=== PATIENT | male | born 1955 | race Caucasian/White ===

== ENCOUNTER 2020-03-18 14:43 | Outpatient (REF) | payer BC, SELFPAY ==
[2020-03-18 19:36] LABS: COMMENT (LAB VIEW ONLY) 257.75 mg/dL; Microalb ug/mg Crea 9.2 ug/mg Cr
== END 2020-03-18 14:44 | disposition home or self-care (01) ==
LOC: NCHCN 14:43
PROVIDERS: PCP Internal Medicine; Visit Provider Internal Medicine
DX: E11.9 Type 2 diabetes mellitus without complications (principal)
CPT/HCPCS: 82043; 82570

== ENCOUNTER 2022-10-06 10:07 | Outpatient (CLI) | payer BC, SELFPAY ==
--- NOTE | 2022-10-06 10:21 | DI.RAD_ITS ---
Exam(s) XR HIP RT COMPLETE AP PELVIS EXAM: XR HIP RT COMPLETE AP PELVIS CLINICAL HISTORY: eval R hip pain. TECHNIQUE: 2D digital imaging was performed of the right hip. Two images were obtained. AP pelvis a nd lateral right hip views were obtained. COMPARISON: No exams were available for comparison FINDINGS: BONES: No acute fracture is present. No bony destructive lesion is seen. JOINTS: No dislocation present. There is joint space narrowing of the hips bilaterally, right greater than left. There is subchondral sclerosis in the acetabular roof on the right. SOFT TISSUE: Surgical clips are seen inferior to the pelvis which may reflect prior vasectomy. IMPRESSION: Degenerative changes of the right hip. DATA REPOSITORY: RADIATION DOSE DELIVERED:
== END 2022-10-06 10:08 | disposition home or self-care (01) ==
LOC: DIORS 10:08
PROVIDERS: PCP Internal Medicine; Referring Provider Internal Medicine; Visit Provider Student in an Organized Health Care Education/Training Program
DX: M16.11 Unilateral primary osteoarthritis, right hip (principal)
CPT/HCPCS: 73502

== ENCOUNTER 2022-11-10 02:22 | Outpatient (CLI) | payer OTHER, SELFPAY ==
[2022-11-10 11:35] LABS: HCT 44.2 % (40.0-50.0); HGB 14.9 g/dL (13.5-17.5); MCH 29.6 pg (27.0-33.0); MCHC 33.7 % (32.0-36.0); MCV 88 fL (80-95); MPV 10.5 fL (8.0-11.0); Platelet Count 195 10^3/uL (130-400); RBC 5.04 10^6/uL (4.36-5.78); RDW 12.2 % (11.8-14.1); RDW-SD 39.2 fL; WBC 9.93 10^3/uL (4.4-10.8)
[2022-11-10 11:56] LABS: Anion Gap 9.3 mmol/L (3-11); BUN 22 mg/dL (7-18); CO2 25.7 mmol/L (21.0-32.0); Chloride 101 mmol/L (98-107); Estimated GFR 81.98 (mL/min/1.73m2); Glucose 144 mg/dL (74-106); Sodium 136 mmol/L (136-145)
== END 2022-11-10 02:23 | disposition home or self-care (01) ==
LOC: LBO 02:22
PROVIDERS: PCP Internal Medicine; Visit Provider Student in an Organized Health Care Education/Training Program
DX: M25.551 Pain in right hip (principal); M16.11 Unilateral primary osteoarthritis, right hip; Z01.818 Encounter for other preprocedural examination; Z01.812 Encounter for preprocedural laboratory examination
CPT/HCPCS: 36415; 80048; 85027

== ENCOUNTER 2022-11-22 05:55 | Day surgery (SDC) | payer OTHER, SELFPAY ==
[2022-11-22] VITALS (7 sets, daily range): BP systolic 119–138; BP diastolic 68–82; PULSE 54–77; RESP 12–121; TEMP 36.1–37; O2SAT 97–98; BMI 24.4
[2022-11-22] MEDS: Acetaminophen 500 MG TAB 1000 MG PO (06:42)
[2022-11-22] MEDS: Celecoxib 200 MG CAP 400 MG PO (06:42)
--- NOTE | 2022-11-22 06:55 | W.ANESPRE ---
General Info Date of Service Date Performed: 11/22/22 Height: 6 ft 2.5 in Weight: 87.4 kg Body Mass Index (BMI): 24.4 Surgical Procedure: Operation Date: 11/22/22 07:50 Proposed Procedure Side Surgeon p Hip Total Hip Anterior, ACTIS Right Rasheed Erazo MD Meds Allergies and Home Medications Allergies Allergy/AdvReac Type Severity Reaction Status Date / Time No Known Allergies Allergy Verified 11/22/22 06:30 Home Medication Medication Instructions Recorded cholecalciferol (vitamin D3) 25 25 mcg PO DAILY 09/08/19 mcg (1,000 unit) capsule multivitamin,[id number] 1 tab PO DAILY 09/08/19 (Complete Multivitamin tablet) omega-3 fatty acids 1,000 mg 1,500 mg PO DAILY 09/08/19 capsule atorvastatin 20 mg tablet 20 mg PO DAILY 10/06/22 dapagliflozin propanediol 5 mg 5 mg PO DAILY 10/06/22 tablet (Farxiga) fluoxetine 20 mg capsule 20 mg PO DAILY 10/06/22 trazodone 50 mg tablet 50 mg PO QHS 10/06/22 metformin 750 mg tablet,extended 750 mg PO BID 11/01/22 release 24 hr acetaminophen 500 mg tablet 1,000 mg (2 x 500 mg) PO TID #90 11/22/22 tabs aspirin 81 mg tablet,delayed 81 mg PO BID #60 tabs 11/22/22 release celecoxib 200 mg capsule 200 mg PO BID #60 caps 11/22/22 magnesium 100 mg tablet 400 mg PO 11/22/22 oxycodone 5 mg tablet 5 mg PO Q4H PRN pain #20 tabs 11/22/22 pantoprazole 40 mg tablet,delayed 40 mg PO DAILY #30 tabs 11/22/22 release Current Visit Medications: Current Medications Generic Name Dose Route Start Last Admin Trade Name Freq PRN Reason Stop Dose Admin Acetaminophen 1,000 mg 11/22/22 06:00 11/22/22 06:42 Acetaminophen 500 Mg Tab PO 12/22/22 05:59 1,000 mg PREOP ELIUD Administration Celecoxib 400 mg 11/22/22 06:00 11/22/22 06:42 Celecoxib 200 Mg Cap PO 12/22/22 05:59 400 mg PREOP ELIUD Administration Tranexamic Acid 1,000 mg/ 60 mls @ 360 mls/hr 11/22/22 06:00 Sodium Chloride IV 12/22/22 05:59 PREOP ELIUD Ringer's Solution 1,000 mls @ 80 mls/hr 11/22/22 06:00 IV 12/21/22 23:59 INFUSION ELIUD Cefazolin Sodium/Dextrose 2 gm in 50 mls @ 100 mls/hr 11/22/22 06:00 Ancef Duplex IVPB 12/21/22 23:59 PREOP ELIUD IV Miscellaneous Supplies 1 each 11/22/22 06:00 Iv Access IV 12/21/22 23:59 DIRECTED ELIUD Sodium Chloride 0 ml 11/22/22 06:00 Normal Saline Flush 10 Ml Syr IV 12/21/22 23:59 PRN PRN Sodium Chloride 0 ml 11/22/22 06:00 Normal Saline 10 Ml Vial IJ 12/21/22 23:59 DIRECTED PRN Sterile Water 0 ml 11/22/22 06:00 Water,Injection,Sterile 10 Ml Vial IJ 12/21/22 23:59 DIRECTED PRN PFSH Active Problems Active Problems: Problem Status Onset Code Type 2 diabetes mellitus E11.9 Arthritis of right hip M16.11 Nocturia R35.1 Diabetic peripheral neuropathy E11.42 Trigeminal neuralgia G50.0 Medical History Medical History Multiple sclerosis Leg length discrepancy Depression with anxiety Broken neck 1974 Insomnia Hyperlipidemia Hypertension SUAREZ (nonalcoholic steatohepatitis) Enthesopathy Panic disorder Medical History Comments:: Per pt. states they gave me gas and I didn't come out of it well Surgical History Surgical History Status post myringotomy with tube placement of both ears S/P tonsillectomy S/P foot surgery, left Tobacco Smoking/Tobacco Use Status: Former Tobacco Use Alcohol Alcohol Intake: current Alcohol intake frequency: 0-2 drinks per day Alcohol type: hard liquor Substance Use Substance use: Never Substance use type: does not use Details: alcohol: t-2, 2 drinks Vital Signs and Lab Results Vital Signs Most Recent Vital Signs in EMR: Most Recent Vital Signs Temp Pulse Resp BP Pulse Ox 37.0 C 77 18 119/78 98 11/22/22 06:45 11/22/22 06:45 11/22/22 06:45 11/22/22 06:45 11/22/22 06:45 Lab Results Blood Type / Crossmatch: No Data to Display Complete Blood Count: White Blood Count 9.93 10^3/uL (4.4-10.8) 11/10/22 11:18 Red Blood Count 5.04 10^6/uL (4.36-5.78) 11/10/22 11:18 Hemoglobin 14.9 g/dL (13.5-17.5) 11/10/22 11:18 Hematocrit 44.2 % (40.0-50.0) 11/10/22 11:18 Platelet Count 195 10^3/uL (130-400) 11/10/22 11:18 Complete Metabolic Panel: Sodium 136 mmol/L (136-145) 11/10/22 11:18 Potassium 4.0 mmol/L (3.5-5.1) 11/10/22 11:18 Chloride 101 mmol/L (98-107) 11/10/22 11:18 Carbon Dioxide 25.7 mmol/L (21.0-32.0) 11/10/22 11:18 BUN 22 mg/dL (7-18) H 11/10/22 11:18 Creatinine 1.0 mg/dL (0.70-1.30) 11/10/22 11:18 Est GFR (CKD-EPI 2020) 81.98 (mL/min/1.73m2) 11/10/22 11:18 Calcium 10.0 mg/dL (8.5-10.1) 11/10/22 11:18 Glucose 144 mg/dL (74-106) H 11/10/22 11:18 Liver Function Panel: No Data to Display Coagulation Panel: No Data to Display Cardiac Panel: No Data to Display Arterial Blood Gas: No Data to Display Venous Blood Gas: No Data to Display Pancreas Panel: No Data to Display Thyroid Panel: No Data to Display Infectious Disease: No Data to Display Blood Cultures: No Data to Display Toxicology Panel: No Data to Display Anesthesia Assessment and Plan Anesthesia History Personal History: Other Family History: No Family History of Anesthesia Complications Exercise Tolerance Exercise Tolerance: Metabolic Equivalents>4 Pertinent Negatives Pertinent Negatives: No Symptoms of GERD, No Major Cardiovascular Symptoms or Complaints and No Major Pulmonary Symptoms or Complaints Cardiac & Pulmonary Exam Cardiac Exam: Normal S1/S2 Heart Sounds Pulmonary Exam: Clear Bilateral Breath Sounds Implantable Cardiac Device Does patient have a Pacemaker or an ICD?: No Airway Exam Known Difficult Airway: No Mallampati Class: 4 Mouth Opening: Narrow (< 3cm) Thyromental Distance: Greater than 3 cm Facial Hair: Full Acosta (mustache) Neck Range of Motion: Limited ROM Neck Circumference: Normal Teeth Condition: Normal Dentition ASA Classification ASA Score: ASA 3 Emergency Case?: No NPO Status NPO Status: NPO Clears >2 hours, Solids >8 hours Anesthesia Plan Resuscitation Status: Full Code Anesthesia Technique: Spinal Anesthesia Airway Planned: Natural Airway Monitors Used: Standard Monitors Preoperative Comments:: SAB with GA/ETT backup. Patient's reports snoring while on back.
[2022-11-22] MEDS: Lactated Ringers 1,000 ML 80 ML IV (07:00)
--- NOTE | 2022-11-22 07:00 | DI.RAD_ITS ---
Exam(s) XR HIP RT IN OR EXAM: XR HIP RT IN OR CLINICAL HISTORY: ARTHRITIS RIGHT HIP TECHNIQUE: 2D and realtime digital imaging was performed. CONTRAST MATERIAL: Refer to procedure report. COMPARISON: CR XR HIP RT COMPLETE AP PELVIS from 10/06/2022 FINDINGS: Fluoroscopy was provided for Dr. Erazo during the performance of a right total hip replacement. Please refer to the procedure report for complete details. Ka,r=2.6 mGy IMPRESSION: RADIATION DOSE DELIVERED:
[2022-11-22] MEDS: ceFAZolin 2 GM/50 ML BAG IVPB (07:46)
--- NOTE | 2022-11-22 09:18 | ROE_ITS ---
Date of service: 11/22/22 Time of Service: 09:18 Operative Note Operative Note DATE OF PROCEDURE: 11/22/22 PRE-OP DIAGNOSIS: Right Hip Osteoarthritis POST-OP DIAGNOSIS: same PROCEDURE: Right Anterior Total Hip Arthroplasty with Intraoperative Navigation SURGEON: Rasheed Erazo CLINICAL TEAM LEAD: Lane Tovar ANESTHESIA TYPE: Spinal Refer to Anesthesia Record ESTIMATED BLOOD LOSS: 200 PATHOLOGY: none sent TOURNIQUET TIME: 0 COMPLICATIONS: None Patient was transported to: PACU Patient's condition: stable Implants: 1. Depuy [employer] Acetabular Component, 58mm 2. Depuy Acetabular Liner, [id number] 3. Depuy Actis High Offset Collared Femoral Stem, Size 8 4. Depuy Altrx Ceramic Femoral Head, Size 36+1.5mm Indications: I have seen Pete in clinic for symptoms of hip arthritis, confirmed with radiographic findings. He has exhausted nonoperative methods and was having significant limitations in daily function and desired better function and less pain. I discussed the technical details of a hip replacement. I explained the risks of the procedure to include, but not limited to, bleeding, infection, pain, stiffness, fracture, damage to nerves and vessels, damage to muscles and tendons, loosening, instability, leg length inequality, need for repeat procedure, blood clot and cardiopulmonary demise. Despite these risks, Pete elected to proceed. Findings: There was significant signs of arthritis throughout the hip along with alarge, complex superior labral tear. Procedure Description: Pete was greeted in the preoperative holding area where the correct side was identified and marked. The consent was reviewed with the patient and signed. The history and physical was updated. All questions were answered. He was taken back to the operating room. A spinal anesthestic was then administered. The feet were wrapped with cast padding and Coban and then placed into the boot liners and then into the boots. Care was taken to protect the skin and make sure the heels were fully down and the boots were stable. The patient was then positioned onto the HANA table. Both legs were held in a neutral position. SCDs were applied. The patient was then slid down onto a peroneal post. Prophylactic antibiotics in the form of Cefazolin were administered. 1g of Tranxemic Acid was given intravenously within 30 minutes of incision. The right leg was then prepped with Chloraprep and draped in a standard fashion. A second prep with Chloraprep was performed prior to placement of a shower-curtain type drape with Iodine impregnated skin protection. A timeout to confirm correct identity, side and site, procedure, allergies, anesthesia, and medical concerns was performed. An obliquely oriented incision was made starting lateral to the ASIS and running distal over the Tensor Fascia Liliana (TFL) muscle belly toward the fibular head, approximately 10cm. The skin and soft tissue was dissected sharply, through Hever?s fascia, and to the fascia of the TFL. With the fascia and superior border of the IT band identified, the fascia was incised with a new knife just above any perforators from the IT band. The TFL muscle belly was bluntly dissected away from the fascia and moved laterally. The fat between TFL and rectus was identified to ensure the dissection was not within the TFL. Blunt dissection created space between abductors and the capsule and retractor was placed over the lateral femoral neck. The fibers of the rectus femoris tendon were identified and these were freed from the anterior capsule. A second cobra retractor was placed around the medial femoral neck. The TFL was further retracted laterally to show the deep fascia. Careful dissection through this layer identified three main crossing vessels of the lateral femoral circumflex. These were cauterized in multiple locations and then cut without any noticeable bleeding. The TFL was further released bluntly from the deep fascia to expose anterior hip capsule and fat The Raheel orthopaedic retractor was then placed beneath the TFL and against sartorius and medial soft tissues to protect and retract the soft tissues. A T-capsulotomy was then performed starting at the superior lateral acetabulum and moving distally to the intertrochanteric ridge. These capsular flaps were tagged with a No. 1 Ethibond and elevated from within. There was a large indirect head of the rectus femoris which was noted for later repair. The capsular flaps were released to the shoulder of the lateral neck and to the lesser trochanter to give excellent visualization of the proximal femur. A neck osteotomy was performed using an oscillating saw based on preoperative templates. This cut started in the shoulder and of the lateral neck and exited medially. The saw was at all times directed medially to avoid injury to the greater trochanter. Gross traction was applied to the leg and the osteotomy opened. The femoral head was removed with a corkscrew, making sure to protect the TFL on its exit. Traction was released after head removal. This was measured on the back table to determine the starting reamer size. Portions of the rectus obscuring visualization were minimally elevated off the superior acetabulum. An anterior retractor was placed over the anterior wall between capsule and labrum and attached to the Gripper retraction system. The femur was rotated to 90 degrees and medial capsule was fully released until the lesser trochanter was palpable and visible; the femur was returned to 30 degrees. A posterior retractor was placed similarly between capsule and labrum. This provided excellent visualization. The contents of the cotyloid fossa were removed with electrocautery and the labrum was removed with a knife. There was a notable floor osteophyte. There was significant chondromalacia of the superior acetabulum. Acetabular reaming began with a 52mm reamer. This first reaming was directed anterior to posterior and medial to get down to the true floor. This was inspected and reamed until the true floor was reached. The anterior retractor was then released and entry and exit was provided by traction on the capsular f laps. I then reamed sequentially up to a 58mm reamer where good fit was obtained. The larger reamers were oriented based on anatomical reference of the anterior and lateral overton to ensure proper abduction and anteversion. Positioning and size was confirmed with the fluoroscopy. A 58mm Depuy [facility] acetabular component was selected. The acetabulum was reamed around the periphery with the selected acetabular size to prevent a rim fit. The deep tissues were irrigated. The acetabular component was then impacted in a position of about 40-45 degrees of abduction and 15-20 degrees of anteversion, using the patient?s anatomy as the ultimate landmark. Fluoroscopy was used to confirm this. There was excellent pad machine feeder of the acetabular component and the inserting handle was removed. The acetabular liner, Depuy [id number] polyethylene liner, was inserted and lined up with the tines of the acetabular component. There was no soft tissue interposition. The liner was then impacted into position and confirmed to be well-seated. A portion of the taye-articular cocktail was then injected around the acetabulum into the capsule and periosteum. This cocktail consisted of 123mg of Ropivacaine, 0.25mg of Epinephrine, 0.04mg of Clonidine, and 15mg of Ketorolac, diluted to 50cc. The leg was rotated to 120 degrees. Any remaining medial capsule was released until the lesser trochanter was easily palpable. A retractor was placed medially. The lateral capsule was further released into the shoulder to allow access to the greater trochanter. A Farrar retractor was placed over the great er trochanter which allowed the trochanter to flip in front of the capsule for excellent exposure. The leg was brought down into maximal extension and 20 degrees of adduction while ensuring there was no impingement on the acetabulum. Any remnant capsule within the trochanter was released. Piriformis and obturator externis were identified and protected. There was excellent access to the proximal femur. The lateral neck remnant was removed with a rongeur. A blunt canal probe was used to identify the canal and trajectory for later broaching. A box osteotome initiated the broach course. A small curved rasp and a curved curette were used to work laterally. Broaching then began with a starter Actis broach. This was inserted manually around the trochanter and into the canal before mallet blows. The broach was seated to a few millimeters below the cut level based on the neck cut and the preoperative template. Sequential broaching was continued with the [employer] pneumatic broaching device until a tight fit was obtained with good rotational control of the femur. A trial high offset neck was inserted along with a +1.5 trial head. The leg was brought out of extension and adduction and then reduced with traction and internal rotation. The leg was stable anteriorly in a position of 30 degrees of extension and 90 degrees of external rotation. Fluoroscopy was used to ensure there was no fracture and the stem was seated well. Leg lengths were checked with an AP pelvis and pelvic reference points. Neocrafts navigation system was used to confirm appropriate positioning and leg length and offset. Once content with the desired offset and leg lengths, the leg was brought back into extension, external rotation and adduction. The periosteum and surrounding tissue was injected with remaining portion of the taye-articular cocktail. The proximal femur was irrigated as well as the deep tissues. The Depuy Actis high neck collared stem, size 8, was then manually inserted into the proximal femur making sure to control rotation. It was then malleted into position with light blows, giving breaks to allow bone expansion and decrease risk of fracture. The selected Depuy Altrx Ceramic Head, size 36+1.5mm, was then placed onto the clean and dry trunnion and secured with impaction onto the tapered fit. The leg was brought back out of extension and adduction and reduced with traction and internal rotation. Stability was confirmed with no shuck at 90 degrees of external rotation and 30 degrees of extension. No impingement through range of motion arc. Final x-ray images were obtained with fluoroscopy to confirm adequate positioning and no intraoperative fracture. The deep tissues were thoroughly irrigated with Surgiphor, betadine solution. This was allowed to sit in the wound for 3 minutes before being thoroughly irrigated out with normal saline. The capsule was then reapproximated with the previously placed Ethibond sutures. The indirect head of the rectus femoris was also closed with a separate #1 Vicryl suture. The TFL fascia was finally closed with a No. 2 Stratafix, barbed suture. Deep tissues were then reapproximated with 0 Vicryl and a running 2-0 Vicryl. The skin was closed with a running 4-0 Monocryl in a subcuticular fashion. This was reinforced with skin glue. A Mepilex silver dressing was applied. At the end of the case, all counts were correct. Pete was transferred to the hospital bed without difficulty and suffering no apparent complication. Pete has a good prognosis. Physical therapy will start today and without restrictions, weight-bearing as tolerated. Aspirin 81mg BID will be used for DVT prophylaxis.
--- NOTE | 2022-11-22 10:52 | PDOC.DSDIS_ITS ---
Date of service: 11/22/22 Time of Service: 10:52 Discharge Plan Disposition Patient Disposition: Home Condition: Good Discharge Details Reason For Visit: R THR Attending Provider: Rasheed Erazo Primary Care Provider: Michael Gan Home Meds and New Rx's Prescriptions: New acetaminophen 500 mg tablet 1,000 mg PO TID Qty: 90 3RF aspirin 81 mg tablet,delayed release (DR/EC) 81 mg PO BID Qty: 60 0RF celecoxib 200 mg capsule 200 mg PO BID Qty: 60 0RF pantoprazole 40 mg tablet,delayed release (DR/EC) 40 mg PO DAILY Qty: 30 0RF oxycodone 5 mg tablet 5 mg PO Q4H MDD 6 tabs PRN (Reason: pain) Qty: 20 0RF Continued Farxiga 5 mg tablet 5 mg PO DAILY trazodone 50 mg tablet 50 mg PO QHS atorvastatin 20 mg tablet 20 mg PO DAILY fluoxetine 20 mg capsule 20 mg PO DAILY omega-3 fatty acids 1,000 mg capsule 1,500 mg PO DAILY cholecalciferol (vitamin D3) 25 mcg (1,000 unit) capsule 25 mcg PO DAILY Complete Multivitamin Tablet 1 tab PO DAILY metformin 750 mg tablet extended release 24 hr 750 mg PO BID magnesium 100 mg tablet 400 mg PO Discharge Instructions Additional Instructions: Total Hip Discharge Instructions Activity: The most important activity is to walk. You should try to take short walks a few times a day. You have no restrictions on movement or positioning, but do not try to force what you do. You will find some stiffness and weakness with hip flexion (lifting your knee). Do not try to strengthen this too early, continue to practice walking and stairs and this will come. - Outpatient physical therapy can be helpful to help return you to a normal gait and improve your flexibility and strength. This can start around 2 weeks. For some patients, it?s not necessary. Usually this is determined at the time of discharge or at the first post-operative visit. - You should wear the LETICIA hose on both legs for 2 weeks. Dressing: Keep the surgical dressing in place for at least one week. After the first week it may be removed and replace with light gauze and tape or nothing. It may get wet after 3 days but avoid soaking the dressing. If it gets wet, just lightly pat dry. It is important to always keep some gauze between skin folds, especially when you are sitting. Spend some time with the wound exposed when you are lying flat as the incision does wrinkle onto itself. Medications: - You should take Tylenol and an anti-inflammatory Celebrex as your primary pain control medications. If the Celebrex is too expensive or not covered, please call the office for another alternative (Advil/Ibuprofen or Naproxen/Aleve). - You have been prescribed a stronger pain medication Oxycodone for breakthrough pain, take as needed as prescribed. - You have also been prescribed a stomach acid reduction agent Pantoprozole to help reduce stomach acid and reflux. - You will be taking Aspirin 81mg twice a day for DVT prevention unless instructed otherwise. - If you have constipation you should take Colace or Miralax (both [id number]). It takes most people 3-4 days to have a bowel movement. Follow-up: 2 weeks If you have any acute concerns or questions, please do not hesitate to contact the office at [phone]. You may contact Dr. Erazo with any questions after hours through the hospital at [phone] or on his cell phone at [phone]. Stand Alone Forms: Anesthesia Discharge Inst., Hayden Gonzales ([facility]) Referrals: Rasheed Erazo MD [ [facility] STAFF PHYSICIAN] - 12/07/22 10:30 am Equipment/Supplies: Walker Activity:: Activity as Tolerated Shower/Bathe:: 72 hours Diet:: As Tolerated Discharge Orders Discharge Orders: Discharge Order (Routine); Ordered 11/22/22 Ordered By: Rasheed Erazo DS: Diagnosis Discharge Diagnosis (1) Arthritis of right hip: Status: Acute
--- NOTE | 2022-11-22 11:18 | W.ANESPOSTOP ---
Postoperative Evaluation Date, Time and Location Date Performed: 11/22/22 Time Performed: 11:18 Patient Location: Day Surgery Unit Vital Signs Most Recent Imported Vital Signs: Most Recent Vital Signs Temp Pulse Resp BP Pulse Ox 36.2 C L 64 16 138/82 97 11/22/22 10:34 11/22/22 10:34 11/22/22 10:34 11/22/22 10:34 11/22/22 10:34 Pain Score Most Recent Pain Score: Most Recent Pain Score Pain Level 3 11/22/22 10:34 Assessment Mental Status: Awake (Alert & Oriented to Patient Baseline) Airway and Respiratory Function: Patent airway with normal (patient baseline) respiratory exam Cardiovascular Function: Hemodynamically Stable Hydration Status: Adequately Hydrated Nausea & Vomiting: No Nausea or Vomiting Pain: Pain is tolerable per patient (level 2-3/10) Peripheral Nerve Block: Patient did not receive a nerve block
--- NOTE | 2022-11-22 13:27 | IN_ITS ---
PT Notes Visit Reasons: R THR Physical Therapy Day Surgery Initial Evaluation Date: 11/22/2022 Referring Doctor: LEONARDO Clinton PT Orders: PT CONSULT: S/P Ortho Surgery Precautions: WBAT on the R LE with AD. Patient Profile/Admitting Diagnosis: Pete is a 66-year-old male with primary unilateral osteoarthritis of the right hip and status post right anterior total hip arthroplasty on postoperative day 0. PMHX: Medical History (Updated 11/01/22 @ 12:59 by Jenny Morataya RN) Broken neck 1975 Depression with anxiety Enthesopathy Hyperlipidemia Hypertension Insomnia Leg length discrepancy SUAREZ (nonalcoholic steatohepatitis) Panic disorder Surgical History S/P foot surgery, left S/P tonsillectomy Status post myringotomy with tube placement of both ears Social History/Home Situation: Lives with in a private home with 2 steps to enter with a support on one side, son and will be present when negotiating steps to assist as needed. Loves to jaramillo. Equipment Owned/DME: Bilateral axillary crutches Subjective: Complained of pulling sensation in the right hip with gentle range of motion exercises in B LE that eventually subsided. Denies headache, chest pain, and lightheadedness throughout session. Did clarify that his right leg is longer than the left that may affect his gait pattern. States that he has MS and neuropathy in B legs and feet. Objective: General Observation: Supine in bed. Jazmin present throughout session. Mepilex Ag over surgical incision. TEDS to be legs. Nurse Fany in agreement to proceed with PT eval as ordered. Mental Status: Alert and oriented x4 Pain: 2-3/10 pain and right hip and thigh ROM: Right Lower Extremity: Hip flexion WFL. Hip abduction WFL. Knee flexion WFL. Ankle dorsiflexion WFL. Ankle plantarflexion WFL. Left Lower Extremity: Hip flexion WFL. Hip abduction WFL. Knee flexion WFL. Ankle dorsiflexion WFL. Ankle plantarflexion WFL. Strength: Right Lower Extremity: Hip flexors 4/5. Hip abductors 4/5. Knee flexors 5/5. Knee extensors 4/5. Ankle dorsiflexors 5/5. Ankle plantarflexors 5/5. Left Lower Extremity:Hip flexors 5/5. Hip abductors 5/5. Knee flexors 5/5. Knee extensors 5/5. Ankle dorsiflexors 5/5. Ankle plantarflexors 5/5. Sensation: Intact as to pain and light pressure in bilateral lower extremities Bed Mobility/Transfers: Supine to sit stand by assist Sit to stand contact-guard assist with cues provided to use B hands for ascent from edge of bed Stand to sit standby assist with cues provided to use both hands to reach behind and control descent onto chair Bed to chair standby assist with cues provided to use both hands for support Gait: Facilitated safe and correct performance of level surface ambulation using front wheeled walker for a distance of 100 feet +50 feet with standby assist with moderate verbal cueing provided for limb advancement, movement sequence, AD management, and posture. Increased tendency for right knee to mildly bend at mid stance due to longer length compared to left LE but no buckling/LOB seen. Stairs: Guided patient with a safe navigation of 6 x 4 inch steps and 4 x 6 inch steps while holding on to both rails with step to gait pattern requiring moderate verbal cueing for overall safety and movement sequence. Balance: Static Sitting: Normal Dynamic Sitting: Normal Static Standing: Fair Dynamic Standing: Fair Special Tests: Mobility Limitations Standardized Measure [facility] 6 clicks Basic Mobility Inpatient Short Form: Raw Score: 21 CMS Score: 29% deficit Informed Consent/Education: Patient instructed in purpose of PT consult. Packet containing AGUEDA exercise protocol has been given to patient. Education and training on initial set of exercises that can be done at home have been completed with patient. Trained patient with correct performance of exercises below to maximize motor control, joint flexibility, soft tissue extensibility of the R hip musculature to facilitate return to independent functional mobility performance. Access Code: [email or web address] URL: [email or web address] Date: 11/22/2022 Prepared by: Esmer Saunders Exercises - Gluteal Sets - 1 x daily - 7 x weekly - 1 sets - 10 reps - 5 hold - Supine Heel Slide - 1 x daily - 7 x weekly - 1 sets - 10 reps - 5 hold - Supine Ankle Pumps - 1 x daily - 7 x weekly - 1 sets - 10 reps - 5 hold - Seated March - 1 x daily - 7 x weekly - 1 sets - 10 reps - 5 hold - Seated Long Arc Quad - 1 x daily - 7 x weekly - 1 sets - 10 reps - 5 hold ASSESSMENT: Patient requires the use of a front-wheeled walker to for all mobility ADL performance maximize independence and reduce fall risk. Encouraged use of front wheeled walker for this session to maximize safety with and nurse in agreement. Did ensure fitting of bilateral axillary crutches when patient is ready to use device. Patient presents with clinical signs and symptoms consistent with current/admitting diagnoses that have resulted to mobility limitations, gait instability, generalized weakness, and impairment of motor control as demonstrated by the following impairment level findings: 1. Decreased strength to right hip major muscle groups 2. Impaired standing balance Impairments are contributing to the following functional limitations: 1. Inability to safely ambulate without assistive device 2. Increase completion time for mobility ADL performance 3. Increased fall risk Patient is assessed as a 45835 moderate complexity complexity based on the following: History: 66-year-old male with impairment level findings, functional limitations, and past medical history as indicated above Examination: Demonstrable impairment in strength, balance, and mobility level with underlying impairments and functional limitations as documented above Presentation: Evolving Decision Makin moderate complexity Goals: N/A. PT evaluation and 1-2 treatment sessions only for functional mobility training using recommended AD and for HEP instruction. Plan of Care/Treatment Plan: N/A. PT evaluation and 1-2 treatment session only for functional mobility training using recommended AD and for HEP instruction. DISCHARGE RECOMMENDATIONS: Home when medically cleared by orthopedic surgeon. Recommend outpatient PT services in order to optimize functional mobility outcomes and facilitate return to independent community ambulation without an assistive device. TREATMENT CODE/TIME: 79457 x 25 minutes, 78714 X 16 minutes beginning at 11:26 AM. Thank you for the opportunity to participate in the care of this patient. Esmer Saunders PT, DPT, CLT [facility] [place], [place]
== END 2022-11-22 12:55 | disposition home or self-care (01) ==
PROVIDERS: PCP Internal Medicine; Visit Provider Student in an Organized Health Care Education/Training Program
PROC: (CPT 27130; principal; 2022-11-22 07:30)
DX: M16.11 Unilateral primary osteoarthritis, right hip (principal); E11.42 Type 2 diabetes mellitus with diabetic polyneuropathy; G35 Multiple sclerosis; F41.0 Panic disorder [episodic paroxysmal anxiety]; I10 Essential (primary) hypertension; E78.5 Hyperlipidemia, unspecified; Z79.84 Long term (current) use of oral hypoglycemic drugs
CPT/HCPCS: 27130; 20985; 97110; 97162; 73501; J0690; J2001; J2250; J2405

== ENCOUNTER 2022-12-07 11:12 | Outpatient (CLI) | payer OTHER, SELFPAY ==
--- NOTE | 2022-12-07 10:15 | DI.RAD_ITS ---
Exam(s) XR HIP RT COMPLETE AP PELVIS EXAM: XR HIP RT COMPLETE AP PELVIS CLINICAL HISTORY: 1ST POST OP S/P R AGUEDA. TECHNIQUE: 2D digital imaging was performed. Two images were obtained. AP pelvis and lateral hip vi ews were obtained. COMPARISON: CR XR HIP RT COMPLETE AP PELVIS from 10/06/2022 XA XR HIP RT IN OR from 11/22/2022 FINDINGS: BONES: There are stable post operative changes of a right total hip replacement present. No fracture or dislocation. JOINTS: The orthopedic hardware is in good position. No evidence of hardware loosening. SOFT TISSUE: Surgical clips are seen inferior to the pelvis which may reflect prior vasectomy. Phleb oliths are seen in the pelvis. Mild atherosclerosis. IMPRESSION: Stable postoperative changes. DATA REPOSITORY: RADIATION DOSE DELIVERED:
== END 2022-12-07 11:13 | disposition home or self-care (01) ==
LOC: DIORS 11:12
PROVIDERS: PCP Internal Medicine; Visit Provider Student in an Organized Health Care Education/Training Program
DX: Z96.641 Presence of right artificial hip joint (principal)
CPT/HCPCS: 73502

== ENCOUNTER 2023-08-14 08:54 | Outpatient (REF) | payer OTHER, BC, SELFPAY ==
[2023-08-14 19:21] LABS: ALT 39 U/L (16-63); AST 19 U/L (15-37); Alkaline Phosphatase 79 U/L (46-116); Anion Gap 7.6 mmol/L (3-11); BUN 22 mg/dL (7-18); Bilirubin, Total 0.55 mg/dL (0.2-1.0); CO2 30.4 mmol/L (21.0-32.0); CREATININE 1.1 mg/dL (0.70-1.30); Calcium 9.2 mg/dL (8.5-10.1); Calculated LDL 92 mg/dL (<100); Chloride 105 mmol/L (98-107); Cholesterol 177 mg/dL (<200); Estimated GFR 72.67 (mL/min/1.73m2); Glucose 157 mg/dL (74-106); HDL Cholesterol 65 mg/dL (40-60); Potassium 4.2 mmol/L (3.5-5.1); Sodium 143 mmol/L (136-145); Total Protein 7.1 g/dL (6.4-8.2); Triglyceride 102 mg/dL (<150)
== END 2023-08-14 08:55 | disposition home or self-care (01) ==
LOC: NCHCN 08:54
PROVIDERS: PCP Internal Medicine; Visit Provider Internal Medicine
DX: E11.40 Type 2 diabetes mellitus with diabetic neuropathy, unspecified (principal); E78.5 Hyperlipidemia, unspecified
CPT/HCPCS: 80053; 80061

== ENCOUNTER 2023-10-04 15:21 | Outpatient (CLI) | payer OTHER, SELFPAY ==
--- NOTE | 2023-10-04 09:56 | DI.RAD_ITS ---
Exam(s) XR KNEE LT 4V AP,LAT,TYE,PAT EXAM: XR KNEE LT 4V AP,LAT,TYE,PAT CLINICAL HISTORY: left knee pain. TECHNIQUE: 2D digital imaging was performed. Three views. COMPARISON: No exams were available for comparison FINDINGS: BONES: No acute fracture is present. No bony destructive lesion is seen. Spurring at the lateral f emoral condyle and lateral tibial plateau. JOINTS: Severe narrowing of the lateral femoral tibial joint space. Some lateral subluxation of the tibia respect to the femoral condyles. A small joint effusion is seen. Mild narrowing of the media l femoral tibial joint space and mild periarticular spurring. SOFT TISSUE: Posterior loose body. Vascular calcifications. IMPRESSION: Severe degenerative changes of the lateral femoral tibial joint. DATA REPOSITORY: RADIATION DOSE DELIVERED:
== END 2023-10-04 15:22 | disposition home or self-care (01) ==
LOC: DIORS 15:21
PROVIDERS: PCP Internal Medicine; Visit Provider Physician Assistant
DX: M17.12 Unilateral primary osteoarthritis, left knee
CPT/HCPCS: 73564

== ENCOUNTER 2023-11-23 10:54 | Outpatient (CLI) | payer OTHER, SELFPAY ==
--- NOTE | 2023-11-23 10:30 | DI.RAD_ITS ---
Exam(s) XR HIP RT AP LAT ONLY EXAM: XR HIP RT AP LAT ONLY CLINICAL HISTORY: ANNUAL F/U S/P R AGUEDA. TECHNIQUE: 2D digital imaging was performed. Two images were obtained. AP, lateral and oblique view s were obtained. COMPARISON: CR XR HIP RT COMPLETE AP PELVIS from 12/07/2022 FINDINGS: BONES: There are stable post operative changes of a right total hip replacement present. No fracture or dislocation. JOINTS: The orthopedic hardware is in good position. No evidence of hardware loosening. SOFT TISSUE: Normal. IMPRESSION: Stable right total hip replacement. DATA REPOSITORY: RADIATION DOSE DELIVERED:
== END 2023-11-23 10:55 | disposition home or self-care (01) ==
LOC: DIORS 10:54
PROVIDERS: PCP Internal Medicine; Referring Provider Internal Medicine; Visit Provider Physician Assistant
DX: Z96.641 Presence of right artificial hip joint (principal); Z47.1 Aftercare following joint replacement surgery
CPT/HCPCS: 73502

== ENCOUNTER 2024-01-14 15:19 | Outpatient (CLI) | payer OTHER, SELFPAY ==
--- NOTE | 2024-01-14 09:30 | DI.RAD_ITS ---
Exam(s) XR PELVIS AP EXAM: XR PELVIS AP CLINICAL HISTORY: OA LEFT HIP. TECHNIQUE: 2D digital imaging was performed. COMPARISON: CR XR HIP RT COMPLETE AP PELVIS from 12/07/2022 FINDINGS: Single AP view. Stable position/appearance of the right hip prosthesis. No fracture or loosening evident on this sin gle view. Left hip appears unremarkable/unchanged. No osseous lesions. Sacroiliac joints appear unremarkable. IMPRESSION: Stable satisfactory appearance DATA REPOSITORY: RADIATION DOSE DELIVERED:
--- NOTE | 2024-01-14 09:30 | DI.RAD_ITS ---
Exam(s) XR LUMBAR SPINE AP, LAT EXAM: XR LUMBAR SPINE AP, LAT CLINICAL HISTORY: HIP PAIN. TECHNIQUE: 2D digital imaging was performed. COMPARISON: No exams were available for comparison FINDINGS: 3 views No evidence of fracture or listhesis. There is, however, advanced multilevel disc space narrowing wi th relative sparing of L1-2. There are also multilevel osteophytes, the largest being right-sided at L 2-3 level. There is no scoliosis. No listhesis. Sacroiliac joints appear unremarkable. Mild fa cet arthropathy. Hip prosthesis is noted. No significant osseous lesions. IMPRESSION: Multilevel chronic degenerative disc disease. DATA REPOSITORY: RADIATION DOSE DELIVERED:
== END 2024-01-14 15:20 | disposition home or self-care (01) ==
LOC: DIORS 15:19
PROVIDERS: PCP Internal Medicine; Visit Provider Physician Assistant
DX: M16.12 Unilateral primary osteoarthritis, left hip (principal); M51.361 Other intervertebral disc degeneration, lumbar region with lower extremity pain only
CPT/HCPCS: 72100; 72170

== ENCOUNTER 2024-02-25 03:10 | Outpatient (CLI) | payer OTHER, SELFPAY ==
[2024-02-25 14:08] LABS: HCT 44.9 % (40.0-50.0); HGB 15.1 g/dL (13.5-17.5); MCH 30.2 pg (27.0-33.0); MCHC 33.6 % (32.0-36.0); MCV 90 fL (80-95); MPV 10.7 fL (8.0-11.0); Platelet Count 189 10^3/uL (130-400); RDW 12.5 % (11.8-14.1); RDW-SD 41.1 fL; WBC 10.72 10^3/uL (4.4-10.8)
[2024-02-25 14:33] LABS: Anion Gap 7.7 mmol/L (3-11); BUN 28 mg/dL (7-18); CO2 29.3 mmol/L (21.0-32.0); CREATININE 1.5 mg/dL (0.70-1.30); Calcium 9.8 mg/dL (8.5-10.1); Chloride 103 mmol/L (98-107); Estimated GFR 49.77 (mL/min/1.73m2); Glucose 167 mg/dL (74-106); Potassium 4.1 mmol/L (3.5-5.1); Sodium 140 mmol/L (136-145)
[2024-02-27 14:50] LABS: Fructosamine 299 mcmol/L (200 - 285)
== END 2024-02-25 03:11 | disposition home or self-care (01) ==
LOC: LBO 03:11
PROVIDERS: PCP Internal Medicine; Visit Provider Student in an Organized Health Care Education/Training Program
DX: M16.12 Unilateral primary osteoarthritis, left hip (principal); Z01.818 Encounter for other preprocedural examination; E11.9 Type 2 diabetes mellitus without complications
CPT/HCPCS: 36415; 80048; 85027; 82985; 83036

== ENCOUNTER 2024-03-07 04:15 | Outpatient (REF) | payer OTHER, SELFPAY ==
[2024-03-10 16:31] LABS: Fructosamine 271 mcmol/L (200 - 285)
== END 2024-03-07 04:16 | disposition home or self-care (01) ==
LOC: NCHCN 04:15
PROVIDERS: PCP Internal Medicine; Visit Provider Internal Medicine
DX: E11.9 Type 2 diabetes mellitus without complications (principal)
CPT/HCPCS: 82985

== ENCOUNTER 2024-03-12 09:41 | Day surgery (SDC) | payer OTHER, SELFPAY ==
[2024-03-12] VITALS (17 sets, daily range): BP systolic 114–135; BP diastolic 61–83; PULSE 56–73; RESP 12–20; TEMP 35.8–36.6; O2SAT 96–100; BMI 24.5
--- NOTE | 2024-03-12 07:24 | PDOC.DSDIS_ITS ---
Date of service: 03/12/24 Discharge Plan Disposition Patient Disposition: Home Condition: Good Discharge Details Reason For Visit: L THR Attending Provider: Rasheed Erazo Primary Care Provider: Michael Gan Home Meds and New Rx's Prescriptions: New celecoxib 200 mg capsule 200 mg PO BID Qty: 60 0RF aspirin 81 mg tablet,delayed release (DR/EC) 81 mg PO BID Qty: 60 0RF acetaminophen 500 mg tablet 1,000 mg PO TID Qty: 90 3RF pantoprazole 40 mg tablet,delayed release (DR/EC) 40 mg PO DAILY Qty: 30 0RF dexamethasone 4 mg tablet 4 mg PO DAILY Qty: 2 0RF oxycodone 5 mg tablet 5 mg PO Q4H MDD 6 tabs PRN (Reason: pain) Qty: 20 0RF Continued atorvastatin 20 mg tablet 20 mg PO DAILY fluoxetine 20 mg capsule 20 mg PO DAILY trazodone 50 mg tablet 50 mg PO QHS PRN turmeric 400 mg capsule 400 mg PO DAILY dapagliflozin propanediol 5 mg tablet 10 mg PO DAILY omega-3 fatty acids 1,000 mg capsule 1,500 mg PO DAILY cholecalciferol (vitamin D3) 25 mcg (1,000 unit) capsule 25 mcg PO DAILY Complete Multivitamin Tablet 1 tab PO DAILY metformin 750 mg tablet extended release 24 hr 750 mg PO BID magnesium 100 mg tablet 400 mg PO DAILY Discontinued acetaminophen 500 mg tablet 1,000 mg PO TID Qty: 90 3RF Discharge Instructions Additional Instructions: Total Hip Discharge Instructions Activity: The most important activity is to walk. You should try to take short walks a few times a day. You have no restrictions on movement or positioning, but do not try to force what you do. You will find some stiffness and weakness with hip flexion (lifting your knee). Do not try to strengthen this too early, continue to practice walking and stairs and this will come. - Outpatient physical therapy can be helpful to help return you to a normal gait and improve your flexibility and strength. This can start around 2 weeks. For some patients, it?s not necessary. Usually this is determined at the time of discharge or at the first post-operative visit. - You should wear the LETICIA hose on both legs for 2 weeks. Dressing: Keep the surgical dressing in place for at least one week. After the first week it may be removed and replace with light gauze and tape or nothing. It may get wet after 3 days but avoid soaking the dressing. If it gets wet, just lightly pat dry. It is important to always keep some gauze between skin folds, especially when you are sitting. Spend some time with the wound exposed when you are lying flat as the incision does wrinkle onto itself. Medications: - You should take Tylenol and an anti-inflammatory Celebrex as your primary pain control medications. If the Celebrex is too expensive or not covered, please call the office for another alternative (Advil/Ibuprofen or Naproxen/Aleve). - You have been prescribed a stronger pain medication Oxycodone for breakthrough pain, take as needed as prescribed. - You have also been prescribed a stomach acid reduction agent Pantoprozole to help reduce stomach acid and reflux. - You have also been prescribed Decadron to help with post-operative nausea and pain. You will take this for two days starting tomorrow. - You will be taking Aspirin 81mg twice a day for DVT prevention unless instructed otherwise. - If you have constipation you should take Colace or Miralax (both [id number]). It takes most people 3-4 days to have a bowel movement. Follow-up: 2 weeks If you have any acute concerns or questions, please do not hesitate to contact the office at [phone]. You may contact Dr. Erazo with any questions after hours through the hospital at [phone] or on his cell phone at [phone]. Referrals: Rasheed Erazo MD [ [facility] STAFF PHYSICIAN] - Equipment/Supplies: Walker Activity:: Activity as Tolerated Shower/Bathe:: 72 hours Diet:: As Tolerated Discharge Orders Discharge Orders: Discharge Order (Routine); Ordered 03/12/24 Ordered By: Lane Tovar DS: Diagnosis Discharge Diagnosis (1) Osteoarthritis of left hip: Status: Acute
[2024-03-12] MEDS: Celecoxib 200 MG CAP 400 MG PO (10:30)
[2024-03-12] MEDS: Acetaminophen 500 MG TAB 1000 MG PO (10:30)
[2024-03-12] MEDS: Lactated Ringers 1,000 ML 80 ML IV (10:56)
--- NOTE | 2024-03-12 11:47 | W.ANESPRE ---
General Info Date of Service Date Performed: 03/12/24 Height: 6 ft 2.5 in Weight: 88.1 kg Body Mass Index (BMI): 24.5 Surgical Procedure: Operation Date: 03/12/24 12:50 Proposed Procedure Side Surgeon p Hip Total Hip Anterior, ACTIS Left Rasheed Erazo MD Meds Allergies and Home Medications Allergies Allergy/AdvReac Type Severity Reaction Status Date / Time No Known Allergies Allergy Verified 03/12/24 10:12 Home Medication ?Medication ?Instructions ?Recorded cholecalciferol (vitamin D3) 25 25 mcg PO DAILY 09/08/19 mcg (1,000 unit) capsule multivitamin,[id number]-[id number] 1 tab PO DAILY 09/08/19 (Complete Multivitamin tablet) omega-3 fatty acids 1,000 mg 1,500 mg PO DAILY 09/08/19 capsule atorvastatin 20 mg tablet 20 mg PO DAILY 10/06/22 fluoxetine 20 mg capsule 20 mg PO DAILY 10/06/22 metformin 750 mg tablet,extended 750 mg PO BID 11/01/22 release 24 hr magnesium 100 mg tablet 400 mg PO DAILY 11/22/22 trazodone 50 mg tablet 50 mg PO QHS PRN 12/25/23 turmeric 400 mg capsule 400 mg PO DAILY 01/14/24 dapagliflozin propanediol 5 mg 10 mg PO DAILY 03/06/24 tablet acetaminophen 500 mg tablet 1,000 mg (2 x 500 mg) PO TID #90 03/12/24 tabs aspirin 81 mg tablet,delayed 81 mg PO BID #60 tabs 03/12/24 release celecoxib 200 mg capsule 200 mg PO BID #60 caps 03/12/24 dexamethasone 4 mg tablet 4 mg PO DAILY #2 tabs 03/12/24 oxycodone 5 mg tablet 5 mg PO Q4H PRN pain #20 tabs 03/12/24 pantoprazole 40 mg tablet,delayed 40 mg PO DAILY #30 tabs 03/12/24 release Current Visit Medications: Current Medications Generic Name Dose Route Start Last Admin Trade Name Freq PRN Reason Stop Dose Admin Acetaminophen 1,000 mg 03/12/24 06:00 03/12/24 10:30 Acetaminophen 500 Mg Tab PO 03/12/24 23:59 1,000 mg PREOP ELIUD Administration Acetaminophen 1,000 mg 03/12/24 07:22 Acetaminophen 500 Mg Tab PO 04/11/24 07:21 TID PRN PRN Analgesia Celecoxib 400 mg 03/12/24 06:00 03/12/24 10:30 Celecoxib 200 Mg Cap PO 03/12/24 23:59 400 mg PREOP ELIUD Administration Docusate Sodium 100 mg 03/12/24 07:22 Docusate Sodium 100 Mg Cap PO 04/11/24 07:21 BID PRN PRN Constipation Ringer's Solution 1,000 mls @ 80 mls/hr 03/12/24 06:00 03/12/24 10:56 IV 03/12/24 23:59 80 mls/hr INFUSION ELIUD Administration Cefazolin Sodium/Dextrose 2 gm in 50 mls @ 100 mls/hr 03/12/24 06:00 Ancef Duplex IVPB 03/12/24 23:59 PREOP ELIUD Tranexamic Acid/Sodium Chloride 1,000 mg in 100 mls @ 600 mls/hr 03/12/24 06:00 IVPB 03/12/24 23:59 PREOP ELIUD IV Miscellaneous Supplies 1 each 03/12/24 06:00 Iv Access IV 03/12/24 23:59 DIRECTED ELIUD Ondansetron HCl 4 mg 03/12/24 07:22 Ondansetron 4 Mg/2 Ml Vial IVP 04/11/24 07:21 Q6H PRN PRN Nausea Oxycodone HCl 0 mg 03/12/24 07:22 Oxycodone 5 Mg Tab PO 04/11/24 07:21 Q3H PRN PRN Pain Polyethylene Glycol 17 gm 03/12/24 07:22 Polyethylene Glycol 3350 17 Gm Packet PO 04/11/24 07:21 BID PRN PRN Constipation Sodium Chloride 0 ml 03/12/24 06:00 Normal Saline Flush 10 Ml Syr IV 03/12/24 23:59 PRN PRN Sodium Chloride 0 ml 03/12/24 06:00 Normal Saline 10 Ml Vial IJ 03/12/24 23:59 DIRECTED PRN Sterile Water 0 ml 03/12/24 06:00 Water,Injection,Sterile 10 Ml Vial IJ 03/12/24 23:59 DIRECTED PRN PFSH Active Problems Active Problems: Problem Status Onset Code Abnormality of gait due to impairment of balance Acute R26.89 Memory loss Acute R41.3 Arthritis, lumbar spine Acute M47.816 Osteoarthritis of left hip Acute M16.12 Osteoarthritis of left knee Acute M17.12 Nocturia Acute R35.1 Trigeminal neuralgia Acute G50.0 Type 2 diabetes mellitus Acute E11.9 Diabetic peripheral neuropathy Acute E11.42 Medical History Medical History Multiple sclerosis Leg length discrepancy Depression with anxiety Broken neck 1974 Insomnia Hyperlipidemia Hypertension SUAREZ (nonalcoholic steatohepatitis) Enthesopathy Panic disorder Pt. denies Medical History Comments:: Per pt. states they gave me gas and I didn't come out of it well Surgical History Surgical History History of total right hip replacement (11/22/22) Status post myringotomy with tube placement of both ears S/P tonsillectomy S/P foot surgery, left Tobacco Smoking/Tobacco Use Status: Former Tobacco Use Alcohol Alcohol Intake: current Alcohol intake frequency: 0-2 drinks per day Alcohol type: hard liquor Substance Use Substance use: Never Substance use type: does not use Details: alcohol: t-2, 2 drinks Vital Signs and Lab Results Vital Signs Most Recent Vital Signs in EMR: Most Recent Vital Signs Temp Pulse Resp BP Pulse Ox 36.3 C L 68 18 135/79 99 03/12/24 09:59 03/12/24 09:59 03/12/24 09:59 03/12/24 09:59 03/12/24 09:59 Lab Results Blood Type / Crossmatch: No Data to Display Complete Blood Count: White Blood Count 10.72 10^3/uL (4.4-10.8) 02/25/24 13:52 Red Blood Count 5.00 10^6/uL (4.36-5.78) 02/25/24 13:52 Hemoglobin 15.1 g/dL (13.5-17.5) 02/25/24 13:52 Hematocrit 44.9 % (40.0-50.0) 02/25/24 13:52 Platelet Count 189 10^3/uL (130-400) 02/25/24 13:52 Complete Metabolic Panel: Sodium 140 mmol/L (136-145) 02/25/24 13:52 Potassium 4.1 mmol/L (3.5-5.1) 02/25/24 13:52 Chloride 103 mmol/L (98-107) 02/25/24 13:52 Carbon Dioxide 29.3 mmol/L (21.0-32.0) 02/25/24 13:52 BUN 28 mg/dL (7-18) H 02/25/24 13:52 Creatinine 1.5 mg/dL (0.70-1.30) H 02/25/24 13:52 Est GFR (CKD-EPI 2020) 49.77 (mL/min/1.73m2) 02/25/24 13:52 Calcium 9.8 mg/dL (8.5-10.1) 02/25/24 13:52 Glucose 167 mg/dL (74-106) H 02/25/24 13:52 Hemoglobin A1c 7.0 % (<5.7) H 02/25/24 13:52 Liver Function Panel: No Data to Display Coagulation Panel: No Data to Display Cardiac Panel: No Data to Display Arterial Blood Gas: No Data to Display Venous Blood Gas: No Data to Display Pancreas Panel: No Data to Display Thyroid Panel: No Data to Display Infectious Disease: No Data to Display Blood Cultures: No Data to Display Toxicology Panel: No Data to Display Anesthesia Assessment and Plan Anesthesia History Personal History: Other Family History: No Family History of Anesthesia Complications Exercise Tolerance Exercise Tolerance: Metabolic Equivalents>4 Cardiac & Pulmonary Exam Cardiac Exam: Normal S1/S2 Heart Sounds Pulmonary Exam: Clear Bilateral Breath Sounds Implantable Cardiac Device Does patient have a Pacemaker or an ICD?: No Airway Exam Known Difficult Airway: No Mallampati Class: 4 Mouth Opening: Narrow (< 3cm) Thyromental Distance: Greater than 3 cm Neck Range of Motion: Limited ROM Neck Circumference: Normal Teeth Condition: Normal Dentition ASA Classification ASA Score: ASA 3 Emergency Case?: No NPO Status NPO Status: NPO Clears >2 hours, Solids >8 hours Anesthesia Plan Resuscitation Status: Full Code Anesthesia Technique: Spinal Anesthesia Airway Planned: Natural Airway Monitors Used: Standard Monitors
[2024-03-12] MEDS: ceFAZolin 2 GM/50 ML BAG IVPB (13:00)
[2024-03-12] MEDS: TRANEXAMIC ACID/SOD. CHL. 1,000 MG/100 ML BAG 600 MG IVPB (13:19)
--- NOTE | 2024-03-12 14:35 | DI.RAD_ITS ---
Exam(s) XR HIP LT IN OR EXAM: XR HIP LT IN OR CLINICAL HISTORY: LEFT HIP OA TECHNIQUE: 2D and realtime digital imaging was performed. CONTRAST MATERIAL: Refer to procedure report. COMPARISON: CR XR PELVIS AP from 01/14/2024 FINDINGS: Fluoroscopy was provided for Dr. Erazo during the performance of a left total hip arthroplasty. Please refer to the procedure report for complete details. Ka,r=3.23 mGy IMPRESSION: RADIATION DOSE DELIVERED: 0.0 0.0 0
--- NOTE | 2024-03-12 14:56 | W.PM.OP ---
Operative Note Operative Note PRE-OP DIAGNOSIS: Left Hip Osteoarthritis POST-OP DIAGNOSIS: same PROCEDURE: Left Anterior Total Hip Arthroplasty with Intraoperative Navigation SURGEON: Rasheed Erazo BRIDAL CONSULTANT: Lane Tovar ANESTHESIA TYPE: Spinal Refer to Anesthesia Record ESTIMATED BLOOD LOSS: 250 PATHOLOGY: none sent TOURNIQUET TIME: 0 COMPLICATIONS: None Patient was transported to: PACU Patient's condition: stable Implants: 1. Depuy [place] Acetabular Component, 56mm 2. Depuy Acetabular Liner, [id number] 3. Depuy Actis Standard Collared Femoral Stem, Size 7 4. Depuy Altrx Ceramic Femoral Head, Size 36+8.5mm Indications: I have seen Pete in clinic for symptoms of hip arthritis, confirmed with radiographic findings. Pete has exhausted nonoperative methods and was having significant limitations in daily function and desired better function and less pain. I discussed the technical details of a hip replacement. I explained the risks of the procedure to include, but not limited to, bleeding, infection, pain, stiffness, fracture, damage to nerves and vessels, damage to muscles and tendons, loosening, instability, leg length inequality, need for repeat procedure, blood clot and cardiopulmonary demise. Despite these risks, he elected to proceed. Findings: There is generalized chondromalacia about the femoral head with some eburnation of the superior aspect of the femoral head. Procedure Description: Pete was greeted in the preoperative holding area where the correct side was identified and marked. The consent was reviewed with the patient and signed. The history and physical was updated. All questions were answered. Pete was taken back to the operating room. A spinal anesthestic was then administered. The feet were wrapped with cast padding and Coban and then placed into the boot liners and then into the boots. Care was taken to protect the skin and make sure the heels were fully down and the boots were stable. The patient was then positioned onto the HANA table. Both legs were held in a neutral position. SCDs were applied. The patient was then slid down onto a peroneal post. Prophylactic antibiotics in the form of Cefazolin were administered. 1g of Tranxemic Acid was given intravenously within 30 minutes of incision. The left leg was then prepped with Chloraprep and draped in a standard fashion. A second prep with Chloraprep was performed prior to placement of a shower-curtain type drape with Iodine impregnated skin protection. A timeout to confirm correct identity, side and site, procedure, allergies, anesthesia, and medical concerns was performed. An obliquely oriented incision was made starting lateral to the ASIS and running distal over the Tensor Fascia Liliana (TFL) muscle belly toward the fibular head, approximately 10cm. The skin and soft tissue was dissected sharply, through Hever?s fascia, and to the fascia of the TFL. During this dissection there was notable movement about the left leg. However, he did not seem to show any signs of pain or distress under his light sedation. With the fascia and superior border of the IT band identified, the fascia was incised with a new knife just above any perforators from the IT band. The TFL muscle belly was bluntly dissected away from the fascia and moved laterally. The fat between TFL and rectus was identified to ensure the dissection was not within the TFL. Blunt dissection created space between abductors and the capsule and retractor was placed over the lateral femoral neck. The fibers of the rectus femoris tendon were identified and these were freed from the anterior capsule. A second cobra retractor was placed around the medial femoral neck. The TFL was further retracted laterally to show the deep fascia. Careful dissection through this layer identified three main crossing vessels of the lateral femoral circumflex. These were cauterized in multiple locations and then cut without any noticeable bleeding. The TFL was further released bluntly from the deep fascia to expose anterior hip capsule and fat. The soft tissue orthopaedic retractor was then placed beneath the TFL and against sartorius and medial soft tissues to protect and retract the soft tissues. He still has notable muscular activation and thus at this point he was converted to a general anesthetic. A T-capsulotomy was then performed starting at the superior lateral acetabulum and moving distally to the intertrochanteric ridge. These capsular flaps were tagged with a No. 1 Vicryl and elevated from within. The capsular flaps were released to the shoulder of the lateral neck and to the lesser trochanter to give excellent visualization of the proximal femur. A neck osteotomy was performed using an oscillating saw based on preoperative templates. This cut started in the shoulder and of the lateral neck and exited medially. The saw was at all times directed medially to avoid injury to the greater trochanter. Gross traction was applied to the leg and the osteotomy opened. The femoral head was removed with a corkscrew, making sure to protect the TFL on its exit. Traction was released after head removal. This was measured on the back table to determine the starting reamer size. Portions of the rectus obscuring visualization were minimally elevated off the superior acetabulum. An anterior retractor was placed over the anterior wall between capsule and labrum and attached to the Gripper retraction system. The femur was rotated to 90 degrees and medial capsule was fully released until the lesser trochanter was palpable and visible; the femur was returned to 30 degrees. A posterior retractor was placed similarly between capsule and labrum. This provided excellent visualization. The contents of the cotyloid fossa were removed with electrocautery and the labrum was removed with a knife. There was significant chondromalacia of the superior acetabulum. Acetabular reaming began with a 52mm reamer. This first reaming was directed anterior to posterior and medial to get down to the true floor. This was inspected and reamed until the true floor was reached. The anterior retractor was then released and entry and exit was provided by traction on the capsular flaps. I then reamed sequentially up to a 56mm reamer where good fit was obtained. The larger reamers were oriented based on anatomical reference of the anterior and lateral overton to ensure proper abduction and anteversion. Positioning and size was confirmed with the fluoroscopy. A 56mm Depuy [place] acetabular component was selected. The acetabulum was reamed around the periphery with the selected acetabular size to prevent a rim fit. The deep tissues were irrigated. The acetabular component was then impacted in a position of about 40-45 degrees of abduction and 15-20 degrees of anteversion, using the patient?s anatomy as the ultimate landmark. Fluoroscopy was used to confirm this. There was excellent manager web application of the acetabular component and the inserting handle was removed. The acetabular liner, Depuy [id number] polyethylene liner, was inserted and lined up with the tines of the acetabular component. There was no soft tissue interposition. The liner was then impacted into position and confirmed to be well-seated. A portion of the taye-articular cocktail was then injected around the acetabulum into the capsule and periosteum. This cocktail consisted of 123mg of Ropivacaine, 0.25mg of Epinephrine, 0.04mg of Clonidine, and 15mg of Ketorolac, diluted to 50cc. The leg was rotated to 120 degrees. Any remaining medial capsule was released until the lesser trochanter was easily palpable. A retractor was placed medially. The lateral capsule was further released into the shoulder to allow access to the greater trochanter. A Farrar retractor was placed over the greater trochanter which allowed the trochanter to flip in front of the capsule for excellent exposure. The leg was brought down into maximal extension and 20 degrees of adduction while ensuring there was no impingement on the acetabulum. Any remnant capsule within the trochanter was released. Piriformis and obturator externis were identified and protected. There was excellent access to the proximal femur. The lateral neck remnant was removed with a rongeur. A blunt canal probe was used to identify the canal and trajectory for later broaching. A box osteotome initiated the broach course. A small curved rasp and a curved curette were used to work laterally. Broaching then began with a starter Actis broach. This was inserted manually around the trochanter and into the canal before mallet blows. The broach was seated to a few millimeters below the cut level based on the neck cut and the preoperative template. Sequential broaching was continued with the Consult A Doctor pneumatic broaching device until a tight fit was obtained with good rotational control of the femur. A trial high offset neck was inserted along with a +8.5 trial head. The leg was brought out of extension and adduction and then reduced with traction and internal rotation. The leg was stable anteriorly in a position of 30 degrees of extension and 90 degrees of external rotation. Fluoroscopy was used to ensure there was no fracture and the stem was seated well. Leg lengths were checked with an AP pelvis and pelvic reference points. [employer] navigation system was used to confirm appropriate positioning and leg length and offset. This actually gave back the leg length we had planned for, approximately 5 mm, however, there was an over correction of offset. Once content with the desired offset and leg lengths, the leg was brought back into extension, external rotation and adduction. The periosteum and surrounding tissue was injected with remaining portion of the taye-articular cocktail. The proximal femur was irrigated as well as the deep tissues. The [employer] standard collared stem, size 7, was then manually inserted into the proximal femur making sure to control rotation. It was then malleted into position with light blows, giving breaks to allow bone expansion and decrease risk of fracture. The selected Depuy Altrx Ceramic Head, size 36+8.5mm, was then placed onto the clean and dry trunnion and secured with impaction onto the tapered fit. The leg was brought back out of extension and adduction and reduced with traction and internal rotation. Stability was confirmed with no shuck at 90 degrees of external rotation and 30 degrees of extension. No impingement through range of motion arc. Final x-ray images were obtained with fluoroscopy to confirm adequate positioning and no intraoperative fracture. The deep tissues were thoroughly irrigated with Surgiphor, betadine solution. This was allowed to sit in the wound for 3 minutes before being thoroughly irrigated out with normal saline. The capsule was then reapproximated with the previously placed Ethibond sutures. The TFL fascia was finally closed with a No. 2 Stratafix, barbed suture. Deep tissues were then reapproximated with 0 Vicryl and a running 2-0 Vicryl. The skin was closed with a running 4-0 Monocryl in a subcuticular fashion. This was reinforced with skin glue. A Mepilex silver dressing was applied. At the end of the case, all counts were correct. Pete was transferred to the hospital bed without difficulty and suffering no apparent complication. Pete has a good prognosis. Physical therapy will start today and without restrictions, weight-bearing as tolerated. Aspirin 81mg BID will be used for DVT prophylaxis. Date of Procedure: 03/12/24
--- NOTE | 2024-03-12 16:00 | PT.INIE ---
PT Notes Visit Reasons: L THR Physical Therapy Day Surgery Initial Evaluation Date: 03/12/2024 Referring Doctor: LEONARDO Clinton PT Orders: PT CONSULT: S/P ORtho Surgery Precautions: WBAT on the L LE with AD. Patient Profile/Admitting Diagnosis: Pete is a 5-year-old male with degenerative joint disease of the L hip status post arthroplasty on postoperative day 0. PMHx: Medical History Multiple sclerosis Leg length discrepancy Depression with anxiety Broken neck 1975Insomnia Hyperlipidemia Hypertension SUAREZ (nonalcoholic steatohepatitis) Enthesopathy Panic disorder Surgical History History of total right hip replacement (11/22/22) Status post myringotomy with tube placement of both ears S/P tonsillectomy S/P foot surgery, left Social History/Home Situation: Lives with in a private home with 2 steps to enter without rails. Equipment Owned/DME: [facility] Subjective: Patient reported discomfort in left hip at 1?2/10 with movement. Denied lheadache, chest pain, and lightheadedness throughout session. Objective: General Observation: Mepilex Ag over surgical incision. TEDS to B legs Mental Status: ANO x 4 Pain: 1-2/10 in the L hip ROM: Right Lower Extremity: Hip flexion WFL. Hip abduction WFL. Knee flexion WFL. Ankle dorsiflexion WFL. Ankle plantarflexion WFL. Left Lower Extremity: Hip flexion WFL. Hip abduction WFL. Knee flexion WFL. Ankle dorsiflexion WFL. Ankle plantarflexion WFL. Strength: Right Lower Extremity: Hip flexors 5/5. Hip abductors 5/5. Knee flexors 5/5. Knee extensors 5/5. Ankle dorsiflexors 5/5. Ankle plantarflexors 5/5. Left Lower Extremity: Hip flexors 4-/5. Hip abductors 4-/5. Knee flexors 4/5. Knee extensors 4-/5. Ankle dorsiflexors 5/5. Ankle plantarflexors 5/5. Sensation: Intact tested pain and light pressure in bilateral lower extremities Bed Mobility/Transfers: Minimal cueing provided for use of B hands as needed for support, movement sequence, AD management, and posture to reduce fall risk and minimize pain report Supine to sit Stand by assist Sit to stand conta ct guard assist with FWW Stand to sit stand by assist with FWW Bed to chair stand by assist with FWW Gait: Facilitated safe and correct performance of level surface ambulation covering 150 feet with step through reciprocal heel-toe gait pattern requiring only standby assist and minimal verbal cueing for limb movement sequence, AD management and posture to minimize pain and reduce fall risk. Stairs: Guided patient with safe and correct negotiation of 3 times steps of 2 x 6 inch steps while holding onto one rail and using a single-point cane with step to gait pattern requiring minimal verbal cueing for limb movement sequence, and hand placement to minimize pain report and reduce fall risk Balance: Static Sitting: Normal Dynamic Sitting: Normal Static Standing: Fair Dynamic Standing: Fair Special Tests: Mobility Limitations Standardized Measure [facility] AM-PAC 6 clicks Basic Mobility Inpatient Short Form: Raw Score: 22 CMS Score: 21% deficit Informed Consent/Education: Patient instructed in purpose of PT consult. Packet containing AGUEDA exercise protocol has been given to patient. Education and training on initial set of exercises that can be done at home have been completed with patient. Trained patient with correct performance of exercises below to maximize motor control, joint flexibility, soft tissue extensibility of the L hip musculature to facilitate return to independent functional mobility performance. Access Code: [email or web address] URL: [email or web address] Date: 03/12/2024 Prepared by: Esmer Saunders Exercises - Gluteal Sets - 1 x daily - 7 x weekly - 1 sets - 10 reps - 5 hold - Supine Heel Slide - 1 x daily - 7 x weekly - 1 sets - 10 reps - 5 hold - Supine Ankle Pumps - 1 x daily - 7 x weekly - 1 sets - 10 reps - 5 hold - Seated March - 1 x daily - 7 x weekly - 1 sets - 10 reps - 5 hold - Seated Long Arc Quad - 1 x daily - 7 x weekly - 1 sets - 10 reps - 5 hold Assessment: Patient requires the use of a front wheeled walker for all mobility ADL performance to maximize independence and reduce fall risk. Patient presents with clinical signs and symptoms consistent with current/admitting diagnoses that have resulted to mobility limitations, gait instability, generalized weakness, and impairment of motor control as demonstrated by the following impairment level findings: 1. Decreased strength to left hip major muscle groups 2. Impaired standing balance Impairments are contributing to the following functional limitations: 1. Inability to safely ambulate without assistive device 2. Increase completion time for mobility ADL performance 3. Increased fall risk Patient is assessed as a 97624 moderate complexity based on the following: History: 68-year-old male with impairment level findings, functional limitations, and past medical history as indicated above Examination: Demonstrable impairment in strength, balance, and mobility level with underlying impairments and functional limitations as documented above Presentation: Evolving Decision Makin moderate complexity Goals: N/A. PT evaluation and 1-2 treatment sessions only for functional mobility training using recommended AD and for HEP instruction. Plan of Care/Treatment Plan: N/A. PT evaluation and 1-2 treatment session only for functional mobility training using recommended AD and for HEP instruction. DISCHARGE RECOMMENDATIONS: Home when medically cleared by orthopedic surgeon. Recommend outpatient PT services in order to optimize functional mobility outcomes and facilitate return to independent community ambulation without an assistive device. TREATMENT CODE/TIME: 89331 x 20 minutes for 1 unit, 87743 times minutes for 1 unit (16:00?16: 40). Thank you for the opportunity to participate in the care of this patient. Esmer Saunders PT, DPT, CLT [facility] [place], [place]
--- NOTE | 2024-03-12 16:53 | W.ANESPOSTOP ---
Postoperative Evaluation Date, Time and Location Date Performed: 03/12/24 Time Performed: 16:00 Patient Location: Day Surgery Unit Vital Signs Most Recent Imported Vital Signs: Most Recent Vital Signs Temp Pulse Resp BP Pulse Ox 36 C L 57 L 18 134/83 100 03/12/24 16:06 03/12/24 16:06 03/12/24 16:06 03/12/24 16:06 03/12/24 16:06 Pain Score Most Recent Pain Score: Most Recent Pain Score Pain Level 0 03/12/24 16:06 Assessment Mental Status: Awake (Alert & Oriented to Patient Baseline) Airway and Respiratory Function: Patent airway with normal (patient baseline) respiratory exam Cardiovascular Function: Hemodynamically Stable Hydration Status: Adequately Hydrated Nausea & Vomiting: No Nausea or Vomiting Pain: Pt. Denies Any Pain Peripheral Nerve Block: Patient did not receive a nerve block
== END 2024-03-12 17:02 | disposition home or self-care (01) ==
PROVIDERS: PCP Internal Medicine; Visit Provider Student in an Organized Health Care Education/Training Program
PROC: (CPT 27130; principal; 2024-03-12 12:30)
DX: M16.12 Unilateral primary osteoarthritis, left hip (principal); M94.252 Chondromalacia, left hip; G35 Multiple sclerosis; E11.42 Type 2 diabetes mellitus with diabetic polyneuropathy; F41.8 Other specified anxiety disorders; E78.5 Hyperlipidemia, unspecified; K75.81 Nonalcoholic steatohepatitis (NASH); I10 Essential (primary) hypertension; Z79.84 Long term (current) use of oral hypoglycemic drugs
CPT/HCPCS: 27130; 20985; 97162; 97530; 73501; C1776; J0690; J2003; J2250; J2401; J2405; J2704

== ENCOUNTER 2024-03-27 15:25 | Outpatient (CLI) | payer OTHER, SELFPAY ==
--- NOTE | 2024-03-27 10:30 | DI.RAD_ITS ---
Exam(s) XR HIP LT COMPLETE AP PELVIS EXAM: XR HIP LT COMPLETE AP PELVIS CLINICAL HISTORY: 1ST POST OP S/P L AGUEDA. TECHNIQUE: 2D digital imaging was performed. Three images were obtained. AP pelvis and lateral left hip views were obtained. COMPARISON: CR XR PELVIS AP from 01/14/2024 FINDINGS: BONES: There are stable post operative changes of a left total hip arthroplasty present. No fracture or dislocation. The patient had a prior right total hip arthroplasty. JOINTS: The orthopedic hardware is in good position. No evidence of hardware loosening. SOFT TISSUE: Normal. IMPRESSION: Stable left total hip arthroplasty.. DATA REPOSITORY: RADIATION DOSE DELIVERED:
== END 2024-03-27 15:26 | disposition home or self-care (01) ==
LOC: DIORS 15:26
PROVIDERS: PCP Internal Medicine; Visit Provider Student in an Organized Health Care Education/Training Program
DX: Z96.642 Presence of left artificial hip joint (principal); Z47.1 Aftercare following joint replacement surgery
CPT/HCPCS: 73502

== ENCOUNTER 2024-11-26 11:00 | Outpatient (REF) | payer BC, SELFPAY ==
[2024-11-26 20:34] LABS: Abs Immature Grans 0.01 10^3/uL (0.0-0.06); HCT 42.5 % (40.0-50.0); HGB 14.1 g/dL (13.5-17.5); Immature Grans % 0.1 %; MCH 29.2 pg (27.0-33.0); MCHC 33.2 % (32.0-36.0); MCV 88 fL (80-95); MPV 11.1 fL (8.0-11.0); Platelet Count 173 10^3/uL (130-400); RBC 4.83 10^6/uL (4.36-5.78); RDW 12.2 % (11.8-14.1); RDW-SD 39.2 fL; WBC 8.80 10^3/uL (4.4-10.8)
[2024-11-26 20:48] LABS: ALT 43 U/L (16-63); AST 15 U/L (15-37); Albumin 3.9 g/dL (3.4-5.0); Alkaline Phosphatase 71 U/L (46-116); Anion Gap 8.8 mmol/L (3-11); BUN 20 mg/dL (7-18); Bilirubin, Total 0.5 mg/dL (0.2-1.0); CO2 29.2 mmol/L (21.0-32.0); Calcium 9.5 mg/dL (8.5-10.1); Chloride 101 mmol/L (98-107); Estimated GFR 80.47 (mL/min/1.73m2); Glucose 149 mg/dL (74-106); LDL CHOLESTEROL 86 mg/dL (<100); Potassium 4.2 mmol/L (3.5-5.1); Sodium 139 mmol/L (136-145); Total Protein 7.0 g/dL (6.4-8.2)
== END 2024-11-26 11:01 | disposition home or self-care (01) ==
LOC: NCHCN 11:00
PROVIDERS: PCP Internal Medicine; Visit Provider Physician Assistant
DX: E11.42 Type 2 diabetes mellitus with diabetic polyneuropathy (principal)
CPT/HCPCS: 80053; 83721; 85025

== ENCOUNTER 2024-11-27 13:26 | Outpatient (REF) | payer OTHER, SELFPAY | END 2024-11-27 13:27 | disposition home or self-care (01) | LOC: LBN 13:26 | PROVIDERS: PCP Internal Medicine; Visit Provider Student in an Organized Health Care Education/Training Program | DX: E11.9 Type 2 diabetes mellitus without complications (principal); Z01.818 Encounter for other preprocedural examination | CPT/HCPCS: 82985 ==

== ENCOUNTER 2024-11-27 14:57 | Outpatient (CLI) | payer OTHER, SELFPAY ==
--- NOTE | 2024-11-27 11:00 | DI.RAD_ITS ---
Exam(s) XR STANDING ALIGNMENT EXAM: XR STANDING ALIGNMENT CLINICAL HISTORY: TKR Planning. TECHNIQUE: 2D digital imaging was performed. Four images were obtained. COMPARISON: CR XR KNEE LT 4V AP,LAT,TYE,PAT from 10/04/2023 XA XR HIP LT IN OR from 03/12/2024 CR XR HIP LT COMPLETE AP PELVIS from 03/27/2024 FINDINGS: BONES: The patient is unremarkable bilateral total hip arthroplasties. In the right knee, there are mild degenerative changes predominantly in the lateral femoral tibial joint. In the left knee, there is moderate joint space narrowing in both the medial and lateral femoral tibial joints. There osteophytes, most marked laterally. The ankles are well maintained.There is no significant leg length discrepancy. SOFT TISSUE: Normal. IMPRESSION: Osteoarthritis of the knees, left greater than right. DATA REPOSITORY: RADIATION DOSE DELIVERED:
== END 2024-11-27 14:58 | disposition home or self-care (01) ==
LOC: DIORS 14:58
PROVIDERS: PCP Internal Medicine; Visit Provider Physician Assistant
DX: M17.12 Unilateral primary osteoarthritis, left knee (principal); M17.11 Unilateral primary osteoarthritis, right knee
CPT/HCPCS: 77073

== ENCOUNTER 2024-12-11 01:28 | Outpatient (CLI) | payer OTHER, SELFPAY | END 2024-12-11 01:29 | disposition home or self-care (01) | LOC: LBO 01:29 | PROVIDERS: PCP Internal Medicine; Visit Provider Student in an Organized Health Care Education/Training Program | DX: E11.9 Type 2 diabetes mellitus without complications (principal); M17.12 Unilateral primary osteoarthritis, left knee; Z01.818 Encounter for other preprocedural examination | CPT/HCPCS: 36415; 82985 ==

== ENCOUNTER 2024-12-16 06:59 | Day surgery (SDC) | payer BC, SELFPAY ==
[2024-12-16] VITALS (19 sets, daily range): BP systolic 110–132; BP diastolic 56–71; PULSE 60–75; RESP 14–21; TEMP 36.3–36.9; O2SAT 94–100; BMI 24.4
--- NOTE | 2024-12-16 07:12 | W.PM.DSUDISC ---
Date of service: 12/16/24 Discharge Plan Disposition Patient Disposition: Home Condition: Good Discharge Details Reason For Visit: Left knee DJD Attending Provider: Rasheed Erazo Primary Care Provider: Michael Gan Home Meds and New Rx's Prescriptions: New celecoxib [Celebrex] 200 mg capsule 200 mg PO BID PRNQty: 60 0RF Rx Instructions: Take one tablet twice daily for pain and inflammation aspirin 81 mg tablet,delayed release (DR/EC) 81 mg PO BID 30 Days Qty: 60 0RF acetaminophen 500 mg tablet 1,000 mg PO Q8H PRN Qty: 90 0RF Rx Instructions: Take two tablets up to every 8 hours as needed for pain pantoprazole 40 mg tablet,delayed release (DR/EC) 40 mg PO DAILY Qty: 14 0RF Rx Instructions: Take one tablet once daily dexamethasone 4 mg tablet 4 mg PO DAILY Qty: 2 0RF Rx Instructions: Take one tablet once daily for two days docusate sodium [Colace] 100 mg capsule 100 mg PO BID Qty: 28 0RF gabapentin 300 mg capsule 300 mg PO QHS Qty: 14 0RF Rx Instructions: Take one tablet at bedtime Continued atorvastatin 20 mg tablet 20 mg PO DAILY fluoxetine 20 mg capsule 20 mg PO DAILY trazodone 50 mg tablet 50 mg PO QHS PRN turmeric 400 mg capsule 400 mg PO DAILY omega-3 fatty acids 1,000 mg capsule 1,500 mg PO DAILY cholecalciferol (vitamin D3) 25 mcg (1,000 unit) capsule 25 mcg PO DAILY Complete Multivitamin Tablet 1 tab PO DAILY metformin 750 mg tablet extended release 24 hr 750 mg PO BID magnesium 100 mg tablet 400 mg PO DAILY Discontinued acetaminophen 500 mg tablet 1,000 mg PO TID Qty: 90 3RF Discharge Instructions Additional Instructions: Total Knee Discharge Instructions Activity: The most important activity is to walk and to work on gentle motion (both flexion and extension). You should try to take short walks a few times a day. It is important that when resting you work on keeping the knee straight. Avoid putting a pillow behind the knee as this will encourage flexion. Work on range of motion exercises as provided by Physical Therapy. - Start outpatient physical therapy within 2 weeks. - You should wear the LETICIA hose on both legs for 2 weeks. You may remove these at night. You may also use any compression sock in place of the LETICIA hose. - Utilize [employer] to review exercises, see videos on exercises and obtain basic information pertaining to your surgery and your recovery. Dressing: Remove the Tin wrap by 2 days after your surgery and put on the LETICIA stocking given to you from the hospital. Keep the surgical dressing (underneath the TIN wrap) in place for at least one week. After the first week it may be removed and replaced with light gauze and tape or nothing. The wound and dressing may get wet after 3 days but avoid soaking the dressing or otherwise it will need to be changed. Many people prefer covering the dressing with cling wrap (saran wrap) to minimize it from getting soaked. If it gets wet, just pat dry. If it starts to peel off then it will need to be changed. Medications: - You should take Tylenol and anti-inflammatory Celebrex as your primary pain control medications. If the Celebrex is too expensive or not covered, please call the office for another alternative (Advil/Ibuprofen or Naproxen/Aleve) - You reported not needing a stronger pain medication prescription. If you need medication in the future please contact office and a narcotic will be prescribed. - You have also been prescribed a stomach acid reduction agent Pantoprozole to help reduce stomach acid and reflux. - You have been prescribed Gabapentin to take at night for restlessness and nerve pain. - You will be taking Aspirin 81mg twice a day for DVT prevention unless instructed otherwise. - You have also been prescribed Decadron to take to control post-operative nausea and pain. You will start this tomorrow. - If you have constipation you should take Colace (which has been prescribed) or Miralax (which is available [id number]). It takes most people 3-4 days to have a bowel movement. Follow-up: 2 weeks If you have any acute concerns or questions, please do not hesitate to contact the office at [phone]. You may contact Dr. Erazo with any questions after hours through the hospital at [phone] or on his cell phone at [phone]. Stand Alone Forms: Portal Information Referrals: Rasheed Erazo MD [ [facility] STAFF PHYSICIAN, Orthopaedic Surgical] Equipment/Supplies: Walker Activity:: Elevate Remove Dressings/Wound Care:: Do Not Remove Shower/Bathe:: Cover Diet:: As Tolerated Discharge Orders Discharge Orders: Discharge Order (Routine); Ordered 12/16/24 Ordered By: Ragini Russo
--- NOTE | 2024-12-16 07:51 | W.ANESPRE ---
General Info Date of Service Date Performed: 12/16/24 Height: 6 ft 3 in Weight: 88.6 kg Body Mass Index (BMI): 24.4 Surgical Procedure: Operation Date: 12/16/24 09:10 Proposed Procedure Side Surgeon p Knee Total Arthroplasty w/OrthAlign Left Rasheed Erazo MD Meds Allergies and Home Medications Allergies Allergy/AdvReac Type Severity Reaction Status Date / Time codeine AdvReac Intermediate Nausea Verified 12/16/24 07:51 Home Medication Medication Instructions Recorded cholecalciferol (vitamin D3) 25 25 mcg PO DAILY 09/08/19 mcg (1,000 unit) capsule multivitamin,[id number] 1 tab PO DAILY 09/08/19 (Complete Multivitamin tablet) omega-3 fatty acids 1,000 mg 1,500 mg PO DAILY 09/08/19 capsule atorvastatin 20 mg tablet 20 mg PO DAILY 10/06/22 fluoxetine 20 mg capsule 20 mg PO DAILY 10/06/22 metformin 750 mg tablet,extended 750 mg PO BID 11/01/22 release 24 hr magnesium 100 mg tablet 400 mg PO DAILY 11/22/22 trazodone 50 mg tablet 50 mg PO QHS PRN 12/25/23 turmeric 400 mg capsule 400 mg PO DAILY 01/14/24 acetaminophen 500 mg tablet 1,000 mg (2 x 500 mg) PO Q8H PRN 12/16/24 pain #90 tabs aspirin 81 mg tablet,delayed 81 mg PO BID 30 days #60 tabs 12/16/24 release celecoxib 200 mg capsule (Celebrex) 200 mg PO BID PRN #60 caps 12/16/24 dapagliflozin propanediol 10 mg 10 mg PO DAILY 12/16/24 tablet (Farxiga) dexamethasone 4 mg tablet 4 mg PO DAILY #2 tabs 12/16/24 docusate sodium 100 mg capsule 100 mg PO BID #28 caps 12/16/24 (Colace) gabapentin 300 mg capsule 300 mg PO QHS #14 caps 12/16/24 pantoprazole 40 mg tablet,delayed 40 mg PO DAILY #14 tabs 12/16/24 release Current Visit Medications: Current Medications Generic Name Dose Route Start Last Admin Trade Name Freq PRN Reason Stop Dose Admin Acetaminophen 1,000 mg 12/16/24 06:00 Acetaminophen 500 Mg Tab PO 12/16/24 23:59 PREOP ELIUD Celecoxib 400 mg 12/16/24 06:00 Celecoxib 200 Mg Cap PO 12/16/24 23:59 PREOP ELIUD Gabapentin 300 mg 12/16/24 06:00 Gabapentin 300 Mg Cap PO 12/16/24 23:59 PREOP ELIUD Hydromorphone HCl 0.5 mg 12/16/24 07:10 Hydromorphone 2 Mg/Ml Syr IVP 01/15/25 07:09 Q2H PRN PRN Ringer's Solution 1,000 mls @ 80 mls/hr 12/16/24 06:00 IV 12/16/24 23:59 INFUSION ELIUD Cefazolin Sodium/Dextrose 2 gm in 50 mls @ 100 mls/hr 12/16/24 06:00 Ancef Duplex IVPB 12/16/24 23:59 PREOP ELIUD Tranexamic Acid/Sodium Chloride 1,000 mg in 100 mls @ 600 mls/hr 12/16/24 06:00 IVPB 12/16/24 23:59 PREOP ELIUD Cefazolin Sodium/Dextrose 1 gm in 50 mls @ 100 mls/hr 12/16/24 08:00 Ancef Duplex IVPB 12/17/24 00:29 Q8H ELIUD IV Miscellaneous Supplies 1 each 12/16/24 06:00 Iv Access IV 12/16/24 23:59 DIRECTED ELIUD Oxycodone HCl 0 mg 12/16/24 07:10 Oxycodone 5 Mg Tab PO 01/15/25 07:09 Q3H PRN PRN Pain Sodium Chloride 0 ml 12/16/24 06:00 Normal Saline Flush 10 Ml Syr IV 12/16/24 23:59 PRN PRN Sodium Chloride 0 ml 12/16/24 06:00 Normal Saline 10 Ml Vial IJ 12/16/24 23:59 DIRECTED PRN Sterile Water 0 ml 12/16/24 06:00 Water,Injection,Sterile 10 Ml Vial IJ 12/16/24 23:59 DIRECTED PRN Tranexamic Acid 1,300 mg 12/16/24 07:10 Tranexamic Acid 650 Mg Tab PO 01/15/25 07:09 ONCE PRN postoperative PFSH Active Problems Active Problems: Problem Status Onset Code Abnormality of gait due to impairment of balance Acute R26.89 Memory loss Acute R41.3 Arthritis, lumbar spine Acute M47.816 Osteoarthritis of left knee Acute M17.12 Nocturia Acute R35.1 Trigeminal neuralgia Acute G50.0 Type 2 diabetes mellitus Acute E11.9 Diabetic peripheral neuropathy Acute E11.42 Medical History Medical History Multiple sclerosis Leg length discrepancy Depression with anxiety Broken neck 1974 Insomnia Hyperlipidemia Hypertension SUAREZ (nonalcoholic steatohepatitis) Enthesopathy Panic disorder Pt. denies Medical History Comments:: Per pt. states they gave me gas and I didn't come out of it well Surgical History Surgical History History of total left hip arthroplasty (03/12/24) History of total right hip replacement (11/22/22) Status post myringotomy with tube placement of both ears S/P tonsillectomy S/P foot surgery, left Tobacco Smoking/Tobacco Use Status: Former Tobacco Use Alcohol Alcohol Intake: current Alcohol intake frequency: 0-2 drinks per day Alcohol type: hard liquor Substance Use Substance use: Never Substance use type: does not use Details: alcohol: t-2, 2 drinks. Vital Signs and Lab Results Vital Signs Most Recent Vital Signs in EMR: Most Recent Vital Signs Temp Pulse Resp BP Pulse Ox 36.3 C L 68 16 132/71 98 12/16/24 07:37 12/16/24 07:37 12/16/24 07:37 12/16/24 07:37 12/16/24 07:37 Point of Care Results Point of Care Results: Finger Stick Blood Glucose 126 12/16/24 07:09 Lab Results Complete Blood Count: WBC, (4.4-10.8) 8.80 10^3/uL 11/26/24, 10:35 RBC, (4.36-5.78) 4.83 10^6/uL 11/26/24, 10:35 Hgb, (13.5-17.5) 14.1 g/dL 11/26/24, 10:35 Hct, (40.0-50.0) 42.5 % 11/26/24, 10:35 Plt Count, (130-400) 173 10^3/uL 11/26/24, 10:35 Complete Metabolic Panel: Sodium, (136-145) 139 mmol/L 10/22/25, 10:35 Potassium, (3.5-5.1) 4.2 mmol/L 11/26/24, 10:35 Chloride, (98-107) 101 mmol/L 11/26/24, 10:35 Carbon Dioxide, (21.0-32.0) 29.2 mmol/L 11/26/24, 10:35 BUN, (7-18) 20 mg/dL H 11/26/24, 10:35 Creatinine, (0.70-1.30) 1.0 mg/dL 11/26/24, 10:35 Est GFR (CKD-EPI 2020), (mL/min/1.73m2) 80.47 11/26/24, 10:35 Calcium, (8.5-10.1) 9.5 mg/dL 11/26/24, 10:35 Albumin, (3.4-5.0) 3.9 g/dL 11/26/24, 10:35 Glucose, (74-106) 149 mg/dL H 11/26/24, 10:35 Liver Function Panel: ALT, (16-63) 43 U/L 11/26/24, 10:35 AST, (15-37) 15 U/L 11/26/24, 10:35 Anesthesia Assessment and Plan Anesthesia History Personal History: Other (bad experience awakening from general anesthesia, prefers spinal) Family History: No Family History of Anesthesia Complications Exercise Tolerance Exercise Tolerance: Metabolic Equivalents>4 Pertinent Negatives Pertinent Negatives: No Symptoms of GERD, No Major Cardiovascular Symptoms or Complaints, No Major Pulmonary Symptoms or Complaints and No History of CVA/TIA Cardiac & Pulmonary Exam Cardiac Exam: Normal S1/S2 Heart Sounds Pulmonary Exam: Clear Bilateral Breath Sounds Implantable Cardiac Device Does patient have a Pacemaker or an ICD?: No Airway Exam Known Difficult Airway: No Mallampati Class: 4 Mouth Opening: Narrow (< 3cm) Thyromental Distance: Greater than 3 cm Neck Range of Motion: Limited ROM (hx pf cervical fracture) Neck Circumference: Normal Teeth Condition: Generalized Poor Dentition (nothing loose per patient ) ASA Classification ASA Score: ASA 3 Emergency Case?: No NPO Status NPO Status: NPO Clears >2 hours, Solids >8 hours Anesthesia Plan Resuscitation Status: Full Code Anesthesia Technique: Spinal Anesthesia Airway Planned: Natural Airway Pain Management: Surgeon and patient request nerve block (left adductor canal block with Exparel) Monitors Used: Standard Monitors
[2024-12-16] MEDS: Celecoxib 200 MG CAP 400 MG PO (08:01)
[2024-12-16] MEDS: Acetaminophen 500 MG TAB 1000 MG PO (08:01)
[2024-12-16] MEDS: Gabapentin 300 MG CAP PO (08:01)
[2024-12-16] MEDS: Lactated Ringers 1,000 ML 80 ML IV (08:11)
--- NOTE | 2024-12-16 08:57 | W.ANESNERVE ---
Nerve Block Single Injection Procedure Date and Time Date Performed: 12/16/24 Procedure Start: 08:33 Location Where Procedure Performed Procedure Location: Day Surgery Unit Reason Performed: Postoperative Analgesia Requesting Provider: Rasheed Erazo Timeout Performed Timeout Performed: Yes Monitoring Used ECG, Blood Pressure, SpO2 and See EMR for corresponding vital signs Sterility Sterility: Hand Hygiene, Surgical Cap, Surgical Mask, Sterile Gloves, Sterile Drape/Sheet and Chlorhexidine Sedation Given During Procedure Sedation Given (Indicate Dose Given): Versed IV Dose:: 2 mg @ 0834 Patient Mental Status Patient Mental Status: Sedate with meaningful communication Nerve Block 1st Nerve Block: Laterality: Left Block Type: Adductor Canal Ultrasound Image Saved?: Yes Needle / Catheter Used: 100mm SonoPlex II Local Anesthetic Bolus (Indicate Dose Given): Lidocaine used for local infiltration of skin, Injected in 3-5ml increments after negative blood aspiration, Bupivacaine 0.25% Dose:: 10 ml and Exparel Dose:: 10 ml Additives (Indicate Dose Given): None Ultrasound: Sterile probe cover and gel used Nerve Stimulator: Supplement to Ultrasound use and No twitch or parasthesia noted < 0.5 mA Paresthesia: None Procedure Tolerated: No Complications and Patient tolerated well Procedure Outcome: Successful Performed By: Carmencita Burrell
[2024-12-16] MEDS: ceFAZolin 2 GM/50 ML BAG IVPB (09:06)
[2024-12-16] MEDS: TRANEXAMIC ACID/SOD. CHL. 1,000 MG/100 ML BAG 600 MG IVPB (09:30)
--- NOTE | 2024-12-16 09:30 | ROE_ITS ---
Operative Note Operative Note PRE-OP DIAGNOSIS: Left Knee Osteoarthritis POST-OP DIAGNOSIS: same PROCEDURE: Left Total Knee Replacement SURGEON: Rasheed Erazo SALES ENABLEMENT MANAGER: Ragini Russo ANESTHESIA TYPE: General LMA/ETT Refer to Anesthesia Record PATHOLOGY: none sent TOURNIQUET TIME: 0 COMPLICATIONS: Other (Episode of hypotension and bradycardia during spinal attempt, recognized and treated as vasovagal event and responded appropriately without sequela.) Patient was transported to: PACU Patient's condition: stable Implants: 1. Depuy Attune Cementless Cruciate Retaining Femoral Component, Size 8 2. Depuy Attune Cementless Fixed Bearing Tibial Component, Size 8 3. Depuy Attune 8x10mm CR/FB Poly Indications: I have seen Pete in clinic for symptoms of knee arthritis, confirmed with radiographic findings. He has exhausted nonoperative methods and was having significant limitations in daily function and desired better function and less pain. I discussed the technical details of a knee replacement. I explained the risks of the procedure to include, but not limited to, bleeding, infection, pain, stiffness, fracture, damage to nerves and vessels, damage to muscles and tendons, loosening, need for repeat procedure, blood clot and cardiopulmonary demise. Despite these risks, Pete elected to proceed. Findings: There was significant signs of arthritis throughout the knee, mostly involving the lateral femur and lateral tibia. Procedure Description: Pete was greeted in the preoperative holding area where the correct side was identified and marked. The consent was reviewed with the patient and signed. The history and physical was updated. All questions were answered. Preoperative medications were administered: Acetaminophen 1000mg, Celebrex 400mg, and Gabapentin 300mg. An adductor canal block was then administered by the anesthesia team in the DSU. He was taken back to the operating room. A spinal anesthetic was then attempted. During 1 of multiple attempts by anesthesia, he reported feeling warm and unwell. The spine was immediately aborted he was laid down where he became hypotensive and bradycardic and unresponsive for a brief period of time. He responded very quickly to assessment of measures of elevation of the legs and atropine. He was responsive afterwards and reported no sequela. This was thought to be a vasovagal event from the spinal attempt and he had no residual findings on his vital signs. Thus surgery was proceeded but with a general anesthesia. General anesthetic was administered without difficulty. Then, the patient was placed into the supine position on the operating room table. Posts were placed for positioning during the procedure. All bony prominences were well padded. Prophylactic antibiotics in the form of Cefazolin were administered. 1g of Tranxemic Acid was given intravenously within 30 minutes of incision. The left leg was then prepped with Chloraprep and draped in a standard fashion with impervious stockinette. A second prep with Chloraprep was performed prior to application of Iodine impregnated skin protection. A timeout to confirm correct identity, side and site, procedure, allergies, anesthesia, and medical concerns was performed. With the knee in some flexion, a midline incision was made overlying the knee. Full thickness skin flaps were raised once the extensor mechanism was encountered. These were raised medially and laterally. Any bleeding was controlled with electrocautery. Once the extensor mechanism was fully exposed, a medial parapatellar arthrotomy was performed in a flexed position. All bleeding from the arthrotomy and the geniculate arteries was coagulated. A medial subperiosteal peel was performed with electrocautery to the midcoronal plane. The fat pad was removed while keeping the patellar tendon protected. The anterior distal femur synovium was removed for later visualization. The ACL and PCL were resected and the anterior horn of the lateral meniscus was transected. The knee was then flexed with the patella everted. A single starting pin was then placed 1cm anterior to the PCL insertion and the notch in the direction of the femoral head. The OrthoAlign device was applied over the pin. It was oriented to be in line with the epicondylar axis and the trochlear groove. It was then pinned into place. The navigation computer was then turned on and calibrated. The distal femur cut was set at 0 degrees varus and 3.5 degrees flexion. The distal femur cutting guide then was positioned for a 9mm cut. The distal femur was cut with an oscillating saw while protecting the soft tissues. The tibia was then addressed. The OrthoAlign device was placed over the tibial tubercle and medial tibia and secured into position. Once again, OrthoAlign was calibrated and then set for a 1.5 degree varus cut and 5 degrees of posterior slope. With this locked into position, the cut thickness stylus was used to assess cut thickness. The lateral side, most involved side, was set for a 6mm cut. This was then held in position and pinned into place with 2 additional pins and a cross pin for stability. The medial and lateral collateral ligaments were protected and the cut was performed. With this completed, it was assessed and noted to be of appropriate dimensions. The guide and OrthoAlign was removed. A spacer block was inserted and the knee was brought into extension to ensure enough space was present. . The Orthoalign gap balancing device was then placed in extension. This was used to ensure that the ligaments were properly balanced with up to 2 to 3 mm laxity laterally compared medially. The extension gap was measured as 20mm. The knee was then brought into 90 degrees of flexion and the ligament brass plater was once again placed. Under the same amount of force the flexion gap was measured. The Attune specific jig was placed and the flexion gap was made to match the extension gap. The femur was then sized as a size 8. The 4-in-1 cutting guide was the placed. An zay wing was used to confirm appropriate position of the anterior cut to avoid notching. This cutting guide was ensured to be flush on the cut surface and then pinned into place with headed pins. While protecting the soft tissues, quad tendon, and collateral ligaments, the anterior and posterior cuts were performed with a saw. The central two pins were removed and the posterior and anterior chamfers were cut next. The notch-cutting guide was placed. This was pinned to lateralize the femoral component as much as possible while keeping it flush on the cut surface. This was then pinned into position. A saw was used to make the notch cut. A rasp smoothed the cut surfaces. The medial and lateral menisci were removed. A trial femoral component was then inserted, impacted down to the cut surfaces, and the lug holes were drilled. A provisional trial tibial component was placed and the knee was brought through range of motion. The polyethylene was trialed until there was good flexion and extension with excellent stability to the medial and lateral collaterals. The patella was tracking without thumbs. A size 10mm polyethylene component provided the best range of motion and stability with less than 2mm gapping with medial and lateral stress and full extension without significant hyperextension. The tibial cut surface was fully exposed. The tibia was then sized as a 8. The tibia had been previously marked during trialing to correspond to the center of the tibial component to help with rotation. The trial was aligned to this maryanne, approximately rotated to the medial 1/3rd of the tibial tubercle. The trial was pinned into place. The tibia was prepared with a reamer and a keel punch and lug holes. The trial components were removed. The final components were opened on the back table. The periosteal and capsular tissues, especially posteriorly, around the knee were then systematically injected with a periarticular cocktail consisting of 246mg of Ropivacaine, 0.5mg of Epinephrine, 0.08mg of Clonidine, and 30mg of Ketorolac, diluted to 100cc. Then, the knee components were placed. Starting with the tibial component, the tibia was subluxed anteriorly and the lug holes of the component were lined up. The tibia was then impacted with an impactor and mallet until the tibial component was in contact with the tibia. Then, the femoral component was inserted. The lug holes were aligned and the component was impacted into position. The final polyethylene component was inserted. The knee was irrigated with Surgiphor Betadine solution. This was allowed to sit in the knee for 3 minutes and then it was thoroughly irrigated out with saline. The knee was then taken through range of motion. The patella was tracking with a no-thumbs technique. A complete synovectomy of the patella was performed. Any prominence to the lateral facet was resected with a rongeur. The capsule was then reapproximated with a No. 1 Vicryl at multiple locations. The capsule was finally closed with a No. 2 Stratafix, barbed suture. Deep tissues were then reapproximated with 0 Vicryl and 2-0 Vicryl. The skin was closed with a running 3-0 Monocryl in a subcuticular fashion. This was reinforced with skin glue. A Mepilex silver dressing was applied along with a [id number] YANCY wrap. A CryoCuff was applied. Pete was transferred to the hospital bed without difficulty an suffering no apparent complication except for the vasovagal event at the beginning. He has a good prognosis. Physical therapy will start today and without restrictions, weight-bearing as tolerated. Aspirin 81mg BID will be used for DVT prophylaxis. Date of Procedure: 12/16/24
[2024-12-16] MEDS: ROPIvacaine 0.2% 200 MG/100 ML BAG (09:52)
[2024-12-16] MEDS: EPINEPHrine 1 MG/ML AMP pres-free (09:52)
[2024-12-16] MEDS: Ketorolac 30 MG/ML VIAL (09:52)
[2024-12-16] MEDS: Tranexamic Acid 650 MG TAB 1300 MG PO (12:40)
--- NOTE | 2024-12-16 12:46 | W.ANESPOSTOP ---
Postoperative Evaluation Date, Time and Location Date Performed: 12/16/24 Time Performed: 12:48 Patient Location: Day Surgery Unit Vital Signs Most Recent Imported Vital Signs: Most Recent Vital Signs Temp Pulse Resp BP Pulse Ox 36.9 C 75 16 121/63 94 12/16/24 12:20 12/16/24 12:20 12/16/24 12:20 12/16/24 12:20 12/16/24 12:20 Pain Score Most Recent Pain Score: Most Recent Pain Score Pain Level 0 12/16/24 12:20 Assessment Mental Status: Awake (Alert & Oriented to Patient Baseline) Airway and Respiratory Function: Patent airway with normal (patient baseline) respiratory exam Cardiovascular Function: Hemodynamically Stable Hydration Status: Adequately Hydrated Nausea & Vomiting: No Nausea or Vomiting Pain: Pt. Denies Any Pain Peripheral Nerve Block: Regional nerve block not resolved at time of post operative discharge
--- NOTE | 2024-12-16 13:19 | PT.INIE ---
PT Notes Visit Reasons: Left knee DJD Physical Therapy Day Surgery Initial Evaluation Date: 12/16/2024 Referring Doctor: Ragini Russo NP/Dr. Erazo PT Orders: PT CONSULT: Eval and treat this status post Ortho surgery Precautions: History of MS, WBAT LLE Patient Profile/Admitting Diagnosis: Pt is 69-year-old male admitted status post elective left TKA under general anesthesia with nerve block by Dr. Erazo on 12/16/2024. Postop uncomplicated PMHX: Abnormality of gait due to impairment of balance (Acute) Memory loss (Acute) Arthritis, lumbar spine (Acute) Osteoarthritis of left knee (Acute) Nocturia (Acute) Trigeminal neuralgia (Acute) Type 2 diabetes mellitus (Acute) Diabetic peripheral neuropathy (Acute) Medical History Multiple sclerosis Leg length discrepancy Depression with anxiety Broken neck 1975Insomnia Hyperlipidemia Hypertension SUAREZ (nonalcoholic steatohepatitis) Enthesopathy Panic disorder Pt. denies Surgical History History of total left hip arthroplasty (03/12/24) History of total right hip replacement (11/22/22) Status post myringotomy with tube placement of both ears S/P tonsillectomy S/P foot surgery, left Social History/Home Situation: Pt lives in single family home with . Pt has 3 MICHELINE pt uses doorframe to pull himself into home. Pt has rail and window next to toilet. Pt has everything he needs on first floor. Equipment Owned/DME: FWW, single point cane, tub seat, grab next to toilet Subjective: Pt reported feeling well, and declined feeling nausea, lightheadedness or dizziness with sit to stand. Objective: General Observation: Pt lying in bed eating when PT arrived. Mental Status: Pt alert and oriented person, place, time, purpose. Pt Judgment hindered. Informed Consent/Education: Patient instructed in purpose of PT consult. Packet containing TKA exercise protocol has been given to patient. Education and training on initial set of exercises that can be done at home have been completed with patient. Pain: 2/10 in left knee ROM: Right Upper Extremity: WFL Left Upper Extremity: WFL Right Lower Extremity: WFL Left Lower Extremity: WFL except Knee Extension: -4 Degrees Knee Flexion: 115 Degrees Strength: Right Upper Extremity: WFL Left Upper Extremity: WFL Left Lower Extremity: Grossly >/= to 3/5 , SLR without lag shortened ROM, quad set good right Lower Extremity: WFL Sensation: Intact Bed Mobility/Transfers: Supine to sit Independent Sit to stand Supervision w/FWW initial cue to push up Stand to sit independent w/FWW Bed to chair: CGA w/FWW Ambulation: Pt ambulated 120 feet w/FWW CGA. With a step to pattern. Binta decreased, step length decreased, step height decreased. decreased knee flexion on left during swing phase. Stairs: Two six-inch steps and three four-inch steps supervised with railings on both sides. Step to pattern. Pt needed cueing for proper foot placement/stepping sequence. Pt needed cueing to help with heel clearance with descending stairs. Balance: Static Sitting: Normal Dynamic Sitting: Good Static Standing: Good Dynamic Standing: Poor without UE support Special Tests: Mobility Limitations Standardized Measure [facility] 6 clicks Basic Mobility Inpatient Short Form: Raw Score: 20 CMS Score: 35.83% Treatment 55044: Only LLE Quad contractions: 1x5 Glute contractions: 1x5 Ankle pumps: 1x5 Heel slides: 1x5 Seated Marches: 1x5 Seated Leg extensions: 1x5 PT provided verbal and tactile cueing with demonstration for all exercises. Assessment: Pt was able to perform all HEP with verbal and tactile cueing from DPTS to promote proper motor recruitment. Pt ambulated with FWW and CGA with a step to pattern. While ambulating the stairs pt needed verbal and tactile cueing form proper foot placement and foot sequence. At end of session pt wanted to show PT the exercise he has been performing every day. Pt tried to stand w/FWW only on LLE to strengthen RLE. PT stopped pt and informed him for these two weeks he would only be exercising his left leg, and educated him on the importance of protecting his LLE. Pt decreased: strength, standing balance and rom has resulted in a decreased activity tolerance and increased time for ADLs. Pt would benefit from skilled physical therapy after 2 weeks of HEP if deficits are still present. Prognosis is good Patient presents with clinical signs and symptoms consistent with current/admitting diagnoses that have resulted to mobility limitations, gait instability, generalized weakness, and impairment of motor control as demonstrated by the following impairment level findings: 1. Decreased strength to left Quads, hamstring, abductors, and glutes 2. Impaired standing/dynamic balance 3. Limitation of joint range of motion in left knee 4. Pain in left knee 5. impaired functional activity tolerance 6. cognitive deficit / poor insight/judgement Impairments are contributing to the following functional limitations: 1. Inability to safely ambulate without assistive device 2. Increase completion time for mobility ADL performance 3. Increased fall risk 4. difficulty performing stairs safely without assistance Patient is assessed as a Low complexity based on the following: History: 69-year-old Male with impairment level findings, functional limitations, and past medical history as indicated above Examination: Demonstrable impairment in strength, balance, and mobility level with underlying impairments and functional limitations as documented above Presentation: evolving Decision Making: Low Goals: N/A. PT evaluation and 1-2 treatment sessions only for functional mobility training using recommended AD and for HEP instruction. Plan of Care/Treatment Plan: N/A. PT evaluation and 1-2 treatment session only for functional mobility training using recommended AD and for HEP instruction. DISCHARGE RECOMMENDATIONS: Home with outpatient PT TREATMENT CODE/TIME: 44278, 89854/12:35-1:13, 38 total minutes Thank you for the opportunity to participate in the care of this patient. Written by: Tremaine Lopez DPTS Supervised by: Maria Del Rosario Burleson, PT [facility]
== END 2024-12-16 13:56 | disposition home or self-care (01) ==
PROVIDERS: PCP Internal Medicine; Visit Provider Student in an Organized Health Care Education/Training Program
PROC: (CPT 27447; principal; 2024-12-16 09:00)
DX: M17.12 Unilateral primary osteoarthritis, left knee (principal); G89.18 Other acute postprocedural pain
CPT/HCPCS: 27447; 64447; 97161; 97530; C1776; J0166; J0461; J0665; J0666; J0690; J1100; J1885; J2003; J2250; J2401; J2405; J2704; J2795

== ENCOUNTER 2024-12-29 14:30 | Outpatient (CLI) | payer OTHER, SELFPAY ==
--- NOTE | 2024-12-29 13:15 | DI.RAD_ITS ---
Exam(s) XR KNEE LT 1V XR STANDING ALIGNMENT EXAM: XR STANDING ALIGNMENT and XR knee LT 1 V CLINICAL HISTORY: 1ST POT OP L TKA. TECHNIQUE: 2D digital imaging was performed. Five images were obtained. COMPARISON: CR XR HIP LT COMPLETE AP PELVIS from 03/27/2024 CR XR STANDING ALIGNMENT from 11/27/2024 FINDINGS: BONES: There are stable bilateral total hip arthroplasties. Since the prior examination, there has been interval placement of a left total knee arthroplasty. The orthopedic hardware is in good position. There are no suspicious lucencies around the hardware. In the right knee, osteophytes are seen in the lateral femoral tibial joint. The ankles are well maintained.There is no significant leg length discrepancy. SOFT TISSUE: In the soft tissues posterior to the left knee, there is a calcification present. This may rib lie within the joint space. Osteochondromatosis should be considered. Atherosclerotic calcification is seen. IMPRESSION: 1. Interval placement of a left total knee arthroplasty. 2. Degenerative changes of the right knee. DATA REPOSITORY: RADIATION DOSE DELIVERED:
== END 2024-12-29 14:31 | disposition home or self-care (01) ==
LOC: DIORS 14:30
PROVIDERS: PCP Physician Assistant; Visit Provider Student in an Organized Health Care Education/Training Program
DX: Z96.652 Presence of left artificial knee joint (principal); Z47.1 Aftercare following joint replacement surgery
CPT/HCPCS: 73560; 77073

== ENCOUNTER 2025-01-26 15:51 | Outpatient (CLI) | payer OTHER, SELFPAY ==
--- NOTE | 2025-01-26 14:15 | DI.RAD_ITS ---
Exam(s) XR KNEE LT 3V AP,LAT,TYE EXAM: XR KNEE LT 3V AP,LAT,TYE CLINICAL HISTORY: eval L knee pain. TECHNIQUE: 2D digital imaging was performed. Three images were obtained. Merchant's, AP and lateral views were obtained. COMPARISON: CR XR LUMBAR SPINE AP, LAT from 01/14/2024 CR XR KNEE LT 1V from 12/29/2024 CR XR STANDING ALIGNMENT from 12/29/2024 FINDINGS: BONES: There are stable post operative changes of a left total knee arthroplasty present. No fracture or dislocation. JOINTS: The orthopedic hardware is in good position. No evidence of hardware loosening. SOFT TISSUE: Normal. IMPRESSION: Stable left total knee arthroplasty. DATA REPOSITORY: RADIATION DOSE DELIVERED:
== END 2025-01-26 15:52 | disposition home or self-care (01) ==
LOC: DIORS 15:51
PROVIDERS: PCP Physician Assistant; Visit Provider Student in an Organized Health Care Education/Training Program
DX: Z96.652 Presence of left artificial knee joint (principal)
CPT/HCPCS: 73562